=== PATIENT | male | born 1970 | race Caucasian/White ===

== ENCOUNTER → 2022-02-19 12:29 | Outpatient (BNVA) | payer MEDICARE, MEDICAID, SELFPAY | PROVIDERS: PCP Internal Medicine; Visit Provider Student in an Organized Health Care Education/Training Program | DX: M17.11 Unilateral primary osteoarthritis, right knee (principal); M25.561 Pain in right knee; M25.562 Pain in left knee; M1A.0720 Idiopathic chronic gout, left ankle and foot, without tophus (tophi) | CPT/HCPCS: 20610; 99202 ==

== ENCOUNTER 2022-08-16 17:33 | Emergency (ER) | payer OTHER, SELFPAY ==
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
--- NOTE | 2022-08-16 17:43 | ECG_ITS ---
Test Reason : ALTERED MENTAL Blood Pressure : / mmHG Vent. Rate : 129 BPM Atrial Rate : 129 BPM P-R Int : 150 ms QRS Dur : 102 ms QT Int : 296 ms P-R-T Axes : 019 012 011 degrees QTc Int : 433 ms Sinus tachycardia Cannot rule out Anterior infarct , age undetermined Abnormal ECG No previous ECGs available Referred By: Darcy Ponce Electronically Signed By:SEEMA ROSAS MD
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
[2022-08-16 18:19] VITALS: BP 103/58; BP 142/99; PULSE 130; PULSE 96; RESP 18; TEMP 36.9; O2SAT 94; O2SAT 97; BMI 38.0
[2022-08-16 18:21] LABS: MANUAL DIFF FLAG NO
[2022-08-16 18:39] LABS: Ethanol 277 mg/dL
[2022-08-16 18:43] LABS: Alanine Aminotransferase 38 U/L (0-40); Albumin Level 3.9 g/dL (3.5-5.0); Alkaline Phosphatase 105 U/L (39-117); Anion Gap 20 (12-20); Aspartate Amino Transferase 23 U/L (5-37); Bilirubin Direct 0.2 mg/dL (0.0-0.5); Bilirubin Total 0.6 mg/dL (0.0-1.0); Blood Urea Nitrogen 21 mg/dL (9-16); Calcium 8.7 mg/dL (8.4-10.2); Carbon Dioxide 17 mmol/L (22-29); Chloride 106 mmol/L (96-108); Creatinine Clr Calc Pharmacy 72.9; Estimated Glomerular Filt Rate 48; Glucose Random 335 mg/dL (60-115); Magnesium 2.1 mg/dL (1.6-2.6); Potassium 4.2 mmol/L (3.3-5.1); Sodium 139 mmol/L (135-145); Total Protein 6.8 g/dL (6.5-8.0)
[2022-08-16 18:44] LABS: Basophils Percent Auto 0.5 % (0-2); Eosinophils Percent Auto 0.2 % (0-4); Hematocrit 44.6 % (42.0-52.0); Hemoglobin 15.5 g/dl (14.0-18.0); Imm Gran Abs Auto 0.03 X10*3/uL (0.00-0.03); Imm Gran Pct Auto 0.5 % (0.0-0.4); Lymphocytes Absolute Auto 0.6 X10*3/uL (1.2-4.9); Lymphocytes Percent Auto 9.9 % (20-40); Mean Corpuscular HGB Conc 34.8 g/dl (31.0-36.0); Mean Corpuscular Hemoglobin 33.3 pg (27.0-33.0); Mean Corpuscular Volume 95.7 fL (80.0-98.0); Mean Platelet Volume 9.1 fL (9.4-12.4); Monocytes Absolute Auto 0.3 X10*3/uL (0.1-1.2); Monocytes Percent Auto 4.1 % (2-11); Neutrophils Absolute Auto 5.1 x10*3/uL (2.0-8.3); Neutrophils Percent Auto 84.8 % (45-73); Platelet Count 234 X10*3/uL (160-400); Red Blood Count 4.66 X10*6/uL (4.60-5.80); Red Cell Distribution Width 12.5 % (11.0-16.0); White Blood Count 6.1 X10*3/uL (4.8-10.8)
== END 2022-08-16 21:34 | disposition home or self-care (01) ==
PROVIDERS: Emergency Provider Emergency Medicine
DX: S00.93XA Contusion of unspecified part of head, initial encounter (principal); S01.81XA Laceration without foreign body of other part of head, initial encounter; V43.52XA Car driver injured in collision with other type car in traffic accident, initial encounter; F10.920 Alcohol use, unspecified with intoxication, uncomplicated; Y90.8 Blood alcohol level of 240 mg/100 ml or more; E11.9 Type 2 diabetes mellitus without complications; I10 Essential (primary) hypertension; E78.5 Hyperlipidemia, unspecified; Y93.89 Activity, other specified; Y92.414 Local residential or business street as the place of occurrence of the external cause; Y99.9 Unspecified external cause status; Z79.4 Long term (current) use of insulin; Z79.02 Long term (current) use of antithrombotics/antiplatelets; Z79.899 Other long term (current) drug therapy
CPT/HCPCS: 36415; 70450; 72125; 73590; 80048; 80076; 82077; 83735; 85025; 93005; 99283; 99284

== ENCOUNTER 2023-06-03 16:44 | Outpatient (AMB) | payer MEDICARE, MEDICAID, SELFPAY ==
[2023-06-03 16:51] VITALS: BP 124/82; PULSE 112; O2SAT 98; BMI 48.3
--- NOTE | 2023-06-03 16:51 | HO.NEPHOV_ITS ---
HPI HPI Comments History of Present Illness Details I had the privilege of seeing Librado in follow-up of his chronic kidney disease and nephrolithiasis. He has a diabetic and has lost some weight. He claims to have better blood sugar control. His blood pressure has been better. His recent imaging studies showed him to have big renal calculi. He denies any hematuria, flank pain, suprapubic pain, fever, nausea, vomiting or diarrhea. He has not had any gout exacerbations. He is tolerating losartan. He takes potassium citrate without fail and claims to be maintaining good hydration. He denies taking nonsteroidal anti-inflammatories. Patient brought in the CD of his recent renal ultrasound as well as the ultrasound report along with the blood work results during this office visit. [facility] Medical History (Updated 06/04/23 @ 12:42 by Kevin Castillo MD) Hypertension Hyperlipidemia Sarcoidosis Morbid obesity Microalbuminuric diabetic nephropathy Staghorn renal calculus Bilateral primary osteoarthritis of knee Onychomycosis Type 2 diabetes mellitus Family History Father CVA (cerebral vascular accident) Social History Household Members Other:: lives alone Housing: House Alcohol intake: never Patient Tobacco Use Status: Never used Tobacco service: No Current occupational status: retired Current occupation: Formerly worked at [employer] Vital Signs 06/03/23 16:51 Height 5 ft 10 in Weight 336 lb 6 oz BMI 48.3 BP 124/82 Blood Pressure Location Lt brachial Position Sitting Pulse 112 H Pulse Source Pulse Oximeter Pulse Oximetry (%) 98 Oxygen Delivery Method Room Air Physical Exam Vital Signs: Last Vital Signs Pulse 112 H 06/03/23 16:51 BP 124/82 06/03/23 16:51 Pulse Ox 98 06/03/23 16:51 Oxygen Delivery Method Room Air 06/03/23 16:51 BMI result Body Mass Index 48.3 Const General: comfortable and no acute distress Orientation/consciousness: patient oriented x3 HEENT Head: Yes normocephalic Mouth: Normal oral and palatal mucosa present Eyes EOM: EOMs intact bilaterally Neck Neck: Yes supple Resp Auscultation: clear to auscultation bilaterally Cardio Jugular venous distension: no JVD Rate: regular rate GI Palpation (GI): Soft to palpation Auscultation: normal bowel sounds General: Yes no CVA tenderness Back/Spine/Pelvis Back: no CVA tenderness Skin General skin exam: no rashes or lesions noted Neuro General: patient oriented x3 and moves all extremities Extrem General: Yes no pedal edema Assessment & Plan Assessment & Plan (1) Renal calculus: Code(s): N20.0 - Calculus of kidney (2) Hypertension: Code(s): I10 - Essential (primary) hypertension Qualifiers: Hypertension type: primary hypertension Qualified Code(s): I10 - Essential (primary) hypertension (3) CKD (chronic kidney disease) stage 3, GFR 30-59 ml/min: Code(s): N18.30 - Chronic kidney disease, stage 3 unspecified Qualifiers: Chronic kidney disease stage 3 subtype: stage 3a (GFR 45-59) Qualified Code(s): N18.31 - Chronic kidney disease, stage 3a Plan 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 He also has longs tanding issues with renal calculi. He recently had a renal ultrasound which showed multiple stones on both sides. I took the liberty to refer him [place] [facility] for further management of the stones. He is maintained on potassium citrate. I will consider adding hydrochlorothiazide if his old stone analysis showed dominant stone composition as calcium. He has not had any gout exacerbations and is maintained on uric acid lowering agents. His blood pressure is at goal. He is tolerating angiotensin receptor tonya. He maintains good hydration. I have ordered urine protein creatinine ratio and repeat renal functions. He needs to work on losing more weight. He avoids nonsteroidal anti-inflammatories. Follow-up blood work and urine studies ordered. Follow-up appointment given. Further management is pending evolving data. Orders: Orders Protein Creatinine Ratio, Ur 06/03/23 I10 - Essential (primary) hypertension, N18.30 - Chronic kidney disease, stage 3 unspecified, N20.0 - Calculus of kidney Creatinine 06/03/23 I10 - Essential (primary) hypertension, N18.30 - Chronic kidney disease, stage 3 unspecified, N20.0 - Calculus of kidney Blood Urea Nitrogen 06/03/23 I10 - Essential (primary) hypertension, N18.30 - Chronic kidney disease, stage 3 unspecified, N20.0 - Calculus of kidney Electrolytes 06/03/23 I10 - Essential (primary) hypertension, N18.30 - Chronic kidney disease, stage 3 unspecified, N20.0 - Calculus of kidney Calcium 06/03/23 I10 - Essential (primary) hypertension, N18.30 - Chronic kidney disease, stage 3 unspecified, N20.0 - Calculus of kidney Referrals Urology Referral N20.0 - Calculus of kidney Coding Level of Care Code Est Pt Level 4 (73481) Diagnoses Renal calculus N20.0 Primary hypertension I10 Hypertension type: primary hypertension Stage 3a chronic kidney disease N18.31 Chronic kidney disease stage 3 subtype: stage 3a (GFR 45-59) Results Reviewed Nephrology Results: Hgb 15.5 g/dl (14.0-18.0) 08/16/22 WBC 6.1 X10*3/uL (4.8-10.8) 08/16/22 Plt Count 234 X10*3/uL (160-400) 08/16/22 Sodium 139 mmol/L (135-145) 08/16/22 Potassium 4.2 mmol/L (3.3-5.1) 08/16/22 Chloride 106 mmol/L (96-108) 08/16/22 Carbon Dioxide 17 mmol/L (22-29) L 08/16/22 BUN 21 mg/dL (9-16) H 08/16/22 Creatinine 1.54 mg/dL (0.5-1.4) H 08/16/22 Calcium 8.7 mg/dL (8.4-10.2) 08/16/22
== END 2023-06-03 17:13 | disposition home or self-care (01) ==
LOC: HO.HKAS 16:44
PROVIDERS: PCP Internal Medicine; Visit Provider Internal Medicine Nephrology
DX: N20.0 Calculus of kidney (principal); I10 Essential (primary) hypertension; N18.31 Chronic kidney disease, stage 3a
CPT/HCPCS: 99214

== ENCOUNTER → 2023-06-03 16:44 | Outpatient (BNVA) | payer MEDICARE, MEDICAID, SELFPAY | PROVIDERS: PCP Internal Medicine; Visit Provider Internal Medicine Nephrology | DX: I12.9 Hypertensive chronic kidney disease with stage 1 through stage 4 chronic kidney disease, or unspecified chronic kidney disease (principal); N18.31 Chronic kidney disease, stage 3a; N20.0 Calculus of kidney | CPT/HCPCS: 99212 ==

== ENCOUNTER 2025-04-19 17:44 | Inpatient (IN) | payer MEDICARE, MEDICAID, SELFPAY ==
--- OUTSIDE RECORDS SUMMARY | 2025-03-23 03:29 | XMS_ITS | Continuity of Care Document ---
Author Organization [facility] Address [address] [place] [address] Dr Laughlin [address] [place] [id number] Phone Care Team Providers Care Devulcanizer Operator Name Role Phone Dieudonne DAILEY, ELISSA, Surinder VERGARA Unavailable U navailable Allergies, Adverse Reactions, Alerts Substance Reaction Status Criticality adhesive Active No Information Advance Directives Directive Yes / No Effective Date File Name No Information Encounters Encounter Description Practice Location Reason(s) For Visit Diagnoses Date Provider Encounter Disposition [facility], [address] [place] [address] Dr Laughlin [address]Suite Dany Brooke [place], [id number], [place] tel:[phone] [facility] No Information 5 Dieudonne DAILEY RVT, RPVI Robert. [address] [place] [address], [id number], [place]. tel:[phone] [facility], [address] [place] [address] Dr Laughlin [address]Dany [place], [id number], [place] tel:[phone] [facility] Type 2 diabetes mellitus without complication sObesity, class 3Obesity, Class 3Venous insufficienc y (chronic) (peripheral) Localized edemaChronic venous hypertension (idiopathic) with other complication s of bilateral lower extremity Oct- 5 Dieudonne DAILEY RVT, RPVI Robert. [address] [place] [address], [id number], [place]. tel:[phone] [facility], [address] [place] [address] Dr Laughlin [address]Suite Dany Brooke [place], [id number], [place] tel:[phone] [facility] - [facility] Chronic venous hypertension (idiopathic) with other complication s of bilateral lower extremity 5 Dieudonne DAILEY RVT, JAI Cadena. [address] [place] [address], [place], [place], [id number], [place]. tel:[phone] [facility], [address] [place] [address] [facility] [address] Dany Brooke [place], [id number], [place] tel:[phone] [facility] - [facility] Venous insufficienc y (chronic) (peripheral) Type 2 diabetes mellitus without complication sRestless legs syndrome 4 Dieudonne DAILEY RVT, JAI Cadena. [address] [place] [address], [place], [place], [id number], [place]. tel:[phone] [facility], [address] [place] [address] [facility] 1000[facility] Dany Brooke MD, [id number], [place] tel:[phone] [facility] - [facility] Chronic venous hypertension (idiopathic) with other complication s of bilateral lower extremity 4 Dieudonne DAILEY RVT, JAI Cadena. [address] [place] [address], [place], [place], [id number], [place]. tel:[phone] [facility], [address] [place] [address] Dr Laughlin 1000[facility] Dany Brooke MD, [id number], [place] tel:[phone] [facility] - [facility] Encounter for follow-up examination after completed treatment for conditions other than malignant neChronic venous hypertension (idiopathic) with other complication s of left lower extremity 4 Dieudonne DAILEY RVT, RPVI Robert. [address] [place] [address], [place], [place], [id number], [place]. tel:[phone] [facility], [address] [place] [address] Dr Laughlin [address] Dany Brooke [place], [id number], [place] tel:[phone] [facility] - [facility] Varicose veins of left lower extremity with other complication s 4 Dieudonne DAILEY RVT, JAI Cadena. [address] [place] [address], [address], [place], [id number], [place]. tel:[phone] [facility], [address] [place] [address] Dr Laughlin [address] 1000[place], [id number], [place] tel:[phone] [facility] [place] [facility] [place] Chronic venous hypertension (idiopathic) with inflammation of left lower extremity 4 Dieudonne DAILEY RVT, JAI Cadena. [address] [facility], [address], [place], [id number], [place]. tel:[phone] [facility], [address] [place] [address] Dr Laughlin [address] 1000Dany [place], [id number], [place] tel:[phone] [facility] [place] [facility] [place] Encounter for follow-up examination after completed treatment for conditions other than malignant nePain in right leg 4 Dieudonne DAILEY RVT, RPVI Robert. [address] [place] [address], [address], [place], [id number], [place]. tel:[phone] [facility], [address] [place] [address] Dr Laughlin [address] 1000Dany [place], [id number], [place] tel:[phone] [facility] [place] [facility] [place] Varicose veins of right lower extremity with other complication s 4 Arthur Morin. [address] [place] [address], [address], [place], [id number], [place]. tel:[phone] [facility], [address] [place] [address] Dr Laughlin [address] 1000Dany [place], [id number], [place] tel:[phone] [facility] [place] [facility] [place] Encounter for follow-up examination after completed treatment for conditions other than malignant neVaricose veins of right lower extremity with pain 4 Dieudonne DAILEY RVT, JAI Cadena. [address] [place] [address], [address], [place], [id number], [place]. tel:[phone] [facility], [address] [place] [address] Dr Laughlin [address] 1000Dany [place], [id number], [place] tel:[phone] [facility] [place] [facility] [place] Varicose veins of right lower extremity with other complication s 4 Dieudonne DAILEY RVT, JAI Cadena. [address] [place] [address], Suite [facility], [place], [place], [id number], [place]. tel:[phone] [facility], [address] [place] [address] Dr Laughlin [address] 999Dany [place], [id number], [place] tel:[phone] [facility] [place] [facility] [place] Varicose veins of right lower extremity with other complication s 4 Dieudonne DAILEY RVT, JAI Cadena. [address] [place] [address], Suite [facility], [facility] [place], [id number], [place]. tel:[phone] [place] [facility], [address] [place] [address] Dr Laughlin 1000[facility] Dany Brooke MD, [id number], [place] tel:[phone] [facility] [place] [facility] [place] No Information 4 Dieudonne DAILEY RVT, JAI Cadena. [address] [place] [address], Suite [facility], [facility] [place], [place], [id number], [place]. tel:[phone] [facility], [address] [place] [address] Dr Laughlin 1000SuDany leigh MD, [id number], [place] tel:[phone] [facility] [place] [facility] [place] Chronic venous hypertension (idiopathic) without complication s of bilateral lower extremity 4 Dieudonne DAILEY RVT, JAI Cadena. [address] [place] [address], [address], [facility] [place] [place], [id number], [place]. tel:[phone] [facility], [address] [place] [address] Dr Laughlin 1000SuDany leigh [place], [id number], [place] tel:[phone] [facility] [place] [facility] [place] Restless legs syndromeType 2 diabetes mellitus without complication sVenous insufficienc y (chronic) (peripheral) Localized edema 4 Emily Jaffe. [address] [place] [address], [facility] [place], [id number], [place]. tel:[phone] [facility], [address] [place] [address] Dr Laughlin [address], [place], [id number], [place] tel:[phone] [facility] Venous insufficienc y (chronic) (peripheral) Pain in right lower legPain in left lower legPain in right legRestless legs syndromePain in left leg 4 Dieudonne DAILEY RVT, JAI Cadena. [address] [place] [address], [facility] [place], [id number], [place]. tel:[phone] [facility], [address] [place] [address] Dr Laughlin [address], [place], [id number], [place] tel:[phone] [facility] Chronic venous hypertension (idiopathic) with ulcer of bilateral lower extremity 4 Dieudonne DAILEY RVT, JAI Cadena. [address] [place] [address], [facility] [place], [id number], [place]. tel:[phone] Family History Family Member Type Diagnosis Age At Onset No Information Payers Payer name Insurance type Identifiers Authorization(s) [employer] DANIEL AUGUSTE mikal ID: [id number] Name: Coverage Status Eligibility Check on: [id number] nship to Subscriber: selfPayer Address: [address], [place], [id number], [facility] Phone: [phone] Medical Assistance DANIEL HERRERA iber ID: [id number] Name: Coverage Status Eligibility Check on: [id number] nship to Subscriber: selfPayer Address: [address], [place], [place], [id number] Phone: [phone] Social History Type Description Quantity Date Captured Comments Alcohol Use Details Unknown Caffeine Use Details Unknown Tobacco Use Status No Information Smoking Status No Information Sex Male Current Gender Male (finding) Chief Complaint And Reason For Visit No Information Plan Of Treatment Date Type Action Status Goal Diet education completed Goal Diet education completed Goal Diet education completed Referral Ordered: Weight management: Referral to physician timeframe: 3 Months (related to Body mass index (BMI) 40.0-44.9, adult) ordered Referral Ordered: Weight management: Referral to physician timeframe: 3 Months (related to Body mass index (BMI) 40.0-44.9, adult) ordered Referral Ordered: Weight management: Referral to physician timeframe: 3 Months (related to Body mass index (BMI) 40.0-44.9, adult) ordered Appointment Major, Librado BOOKED Appointment Major, Librado BOOKED History Of Present Illness Encounter Date Complaint History Of Prese nt Illness No Information Functional Status Date Description Comments No Information Instructions Date Instruction Additional Infor flaco Diet education Related to Body mass index (BMI) 40.0-44.9, adult Giving Encouragement to exercise Related to Body mass index (BMI) 40.0-44.9, adult Lifestyle education Related to B kristy mass index (BMI) 40.0-44.9, adult Compression stocking usage as conservative measure Related to Chronic venous hypertension (idiopathic) with other complications of bilateral lower extremity Patient education booklet given Related to Chronic venous hypertension (idiopathic) with other complications of bilateral lower extremity Patient education booklet given Related to Venous insufficiency (chronic) (peripheral) Diet education Related to Body mass index (BMI) 40.0-44.9, adult Giving Encouragement to exercise Related to Body mass index (BMI) 40.0-44.9, adult Lifestyle education Related to B kristy mass index (BMI) 40.0-44.9, adult Compression stocking usage as conservative measure Related to Venous insufficiency (chronic) (peripheral) Patient education booklet given Related to Venous insufficiency (chronic) (peripheral) Compression stocking usage as conservative measure Related to Venous insufficiency (chronic) (peripheral) Patient education booklet given Related to Venous insufficiency (chronic) (peripheral) Lifestyle education Related to B kristy mass index (BMI) 40.0-44.9, adult Giving Encouragement to exercise Related to Body mass index (BMI) 40.0-44.9, adult Diet education Related to Body mass index (BMI) 40.0-44.9, adult Assessments Type Assessment Date No Information
--- NOTE | ~2025-04-19 | CT_ITS ---
CLINICAL HISTORY: Abnormal LFTs; Abd Pain; N V CT abdomen and pelvis with contrast Comparison: None provided Findings: There is moderate elevation of the right hemidiaphragm. There is mild right basilar atelectasis. There is moderate fatty replacement of the pancreas. There is peripancreatic fat stranding consistent with acute interstitial edematous pancreatitis. There is no pancreatic necrosis. There is no fluid collection. There is severe hepatic steatosis. There is mild hepatomegaly. The gallbladder, spleen, and adrenal glands are unremarkable. The left kidney is mildly atrophic. There are bilateral nonobstructing renal stones measuring up to 17 mm in the right kidney. The gastrointestinal tract is unremarkable. Patient is status post ventral hernia repair. There are no enlarged lymph nodes. The aorta is normal in diameter. The bladder is unremarkable. There is severe L4-5 degenerative disc disease. There is no fracture or suspicious lytic or sclerotic lesion. IMPRESSION: 1. Acute interstitial edematous pancreatitis. 2. Severe hepatic steatosis. This document has been electronically signed by: Noé Kellogg MD on 04/20/2025 00:30:33
--- NOTE | ~2025-04-19 | CT_ITS ---
CLINICAL HISTORY: Dizziness; Recent fall with headstrike CT head without contrast Comparison: CT/RI/SR - CT HEAD WITHOUT IV CONTRAST - 08/16/22 18:55 EDT Findings: There is no acute intracranial hemorrhage. Ventricles are of normal size and shape. No mass effect or midline shift is present. The steinberg-white matter differentiation appears normal. There is mucous in the left sphenoid sinus. Mastoids are clear. Orbits are unremarkable. No fractures are identified. IMPRESSION: No acute intracranial abnormality. This document has been electronically signed by: Noé Kellogg MD on 04/20/2025 00:31:19
[2025-04-19 19:06] VITALS: BP 152/75; PULSE 114; RESP 20; TEMP 36.8; O2SAT 99; BMI 45.9
--- NOTE | 2025-04-19 19:11 | ECG_ITS ---
Test Reason : VOMITTING Blood Pressure : */* mmHG Vent. Rate : 116 BPM Atrial Rate : 116 BPM P-R Int : 170 ms QRS Dur : 100 ms QT Int : 338 ms P-R-T Axes : 78 42 35 degrees QTcB Int : 469 ms Sinus tachycardia Otherwise normal ECG When compared with ECG of 16-Aug-2022 18:08, No significant change was found Referred By: Michael Randhawa Electronically Signed By: Justin Damon
--- NOTE | 2025-04-19 19:13 | ED_ITS ---
HPI - General Adult General Chief complaint: General Medical Stated complaint: DKA Time Seen by Provider: 04/19/25 22:12 Source: patient Mode of arrival: ambulatory Limitations: no limitations History of Present Illness ED Provider: Ld JARAMILLO HPI narrative: The patient is a 55-year-old male who presents to the ED reporting 1?2?days of progressive nausea and multiple episodes of non-bloody, non-bilious vomiting. He notes a markedly poor appetite and is unable to tolerate solid food; attempts at eating (e.g., chicken soup) and most oral fluids result in emesis. He states that he experiences transient abdominal pain that triggers the vomiting and then resolves immediately after vomiting. He denies associated fever, diarrhea, chest pain, cough, SOB, or recent sick contacts. Patient reports a history of diabetes for which he takes metformin, reports he is compliant with metformin and checking his blood sugars. The patient reports a recent diagnosis of ?DKA,? and some type of bone-marrow insufficiency, diagnosed approximately 2 months ago while at [facility]. Surgical history includes a hernia repair approximately 15 years ago; he denies other surgical abdominal history. The patient also reports a mechanical fall on Friday when he ?missed the bed? after feeling dizzy. Patient denies LOC but states a TV fell on his head, patient states he was eventually able to stand without assistance after dizziness subsided. Since the fall patient reports he feels unsteady when bending over to get into bed and reports that his ?legs just don?t seem to work. Patient denies alcohol use. Related Data Home Medications ?Medication ?Instructions ?Recorded ?Confirmed metformin 500 mg tablet 500 mg PO BID 02/19/2204/20 losartan 25 mg tablet 25 mg PO DAILY 06/03/2304/04 insulin aspart U-100 100 unit/mL 6 - 8 unit subcut TID WM 04/20/25 04/20/25 (3 mL) subcutaneous pen melatonin 12 mg tablet 12 mg PO BEDTIME PRN Insomni a 04/20/25 04/20/25 Previous Rx's ?Medication ?Instructions ?Recorded rosuvastatin 10 mg tablet 10 mg PO DAILY #90 tabs 03/0 01/25 Allergies Allergy/AdvReac Type Severity Reaction Status Date / Time adhesive tape AdvReac Mild Unknown Verified 04/19/25 19:13 Review of Systems 2 Review of Systems: Yes all other systems are reviewed and are negative [facility] Past Medical History Medical History Hypertension Hyperlipidemia Sarcoidosis Morbid obesity Microalbuminuric diabetic nephropathy Staghorn renal calculus Bilateral primary osteoarthritis of knee Onychomycosis Type 2 diabetes mellitus Family History Family History Father CVA (cerebral vascular accident) Social History Social History Household Members: None Household Members Other:: lives alone Housing: House Do you presently have visiting nurse or other home services: No Alcohol intake: current Patient Tobacco Use Status: Never used Tobacco service: No Current occupational status: retired Current occupation: Formerly worked at [employer] ED Vital Signs: Vital Signs - 24 hr 04/19/25 19:06 04/19/25 22:06 04/20/25 01:08 Temperature 98.2 F 98.5 F 98.1 F Pulse Rate 114 H 122 H 116 H Respiratory Rate 20 16 20 Blood Pressure 152/75 H 129/83 173/83 H Pulse Oximetry 99 100 100 Oxygen Delivery Method Room Air Room Air Room Air 04/20/25 02:21 Temperature 97.9 F Pulse Rate 122 H Respiratory Rate 23 H Blood Pressure 157/87 H Pulse Oximetry 98 Oxygen Delivery Method Room Air BMI result Body Mass Index 45.9 CONSTITUTIONAL: The patient appears unkempt, but otherwise non-toxic, well nourished and in no acute distress. Vital signs as documented. HEAD: Atraumatic, normocephalic. EYES: EOMs grossly intact, pupils equal, there is icteric sclera noted bilaterally, conjunctiva clear, no exudate. ENT: Nares patent, no discharge. Airway patent, no audible stridor, visible mucosa is pink and moist without noted lesions. NECK: Trachea is midline, no obvious masses or gross abnormalities. CHEST: Symmetric movement, normal appearance. LUNGS: LS present and CTAB, no w/r/r. Non-labored work of breathing. CARDIAC: Regular Rhythm, S1/S2 appreciated, no murmurs, rubs or gallops. ABDOMEN: Abdomen soft x4 quadrants, mild tenderness to palpation of the epigastrium, negative rebound, no palpable masses or organomegaly. : Deferred. EXTREMITIES: Normal tone, moves all extremities spontaneously without reported pain. No obvious acute injury or deformity noted. NEURO: Alert and oriented x3, CN II-XII appear grossly intact. Cerebellar Functioning grossly intact. No obvious sensory or motor deficits. Speech clear and appropriate. PSYCH: normal affect, appropriate eye contact, fluid speech, with appropriate response to questioning. No reported suicidality or homicidality. SKIN: Warm, dry, color appropriate, normal turgor. There is a rash noted to the cheeks consistent with a rosacea. No other rashes noted. Course Course Course Narrative: RME: 55 year male presents to ED for abdominal pain vomiting. Patient is tachycardic. Patient states not taking his insulin medication. POC 150. Labs UA EKG ordered Medications Administered Generic Name Dose Route Start Last Admin Trade Name Freq PRN Reason Stop Dose Admin Enoxaparin Sodium 40 mg 04/20/25 08:00 04/20/25 08:50 Enoxaparin Sodium 40 Mg/0.4 Ml Syringe SUBCUT 40 mg Q24H MONO Administration Insulin Human Regular 100 unit in 100 mls @ 8 mls/hr 04/20/25 04:30 04/20/25 05:38 Myxredlin IVCONT 1 unit/hr .[id number] MONO 1 mls/hr Protocol Titration 8 UNIT/HR Dextrose/Lactated Ringer's 1,000 mls @ 150 mls/hr 04/20/25 06:01 04/20/25 06:23 D5lr IVCONT 150 mls/hr .[id number] MONO Administration Losartan Potassium 25 mg 04/20/25 10:55 04/20/25 11:02 Losartan Potassium 25 Mg Tablet PO 25 mg DAILY MONO Administration Protocol Discontinued Medications Generic Name Dose Route Start Last Admin Trade Name Freq PRN Reason Stop Dose Admin Sodium Chloride 4,354.5 mls @ 4,354.5 mls/hr 04/19/25 22:23 04/20/25 04:00 Ns 30 ml/kg infuse over 1 hr (4354.5 ml) 04/19/25 23:22 Infused IV Infusion .Q1H STA Lactated Ringer's 1,000 mls @ 100 mls/hr 04/20/25 01:30 04/20/25 02:35 Lr IVCONT Not Given .Q10H MONO Dextrose/Sodium Chloride 1,000 mls @ 125 mls/hr 04/20/25 02:15 04/20/25 07:16 D5ns IVCONT Infused .Q8H MONO Infusion Iohexol 85 ml 04/19/25 23:26 04/19/25 23:27 Iohexol 350 Mg/Ml 100 Ml Infus..Btl IV 04/19/25 23:27 85 ml ONCE ONE Administration Metoclopramide HCl 10 mg 04/20/25 03:55 04/20/25 04:02 Metoclopramide Hcl 10 Mg/2 Ml Vial IVPUSH 04/20/25 03:56 10 mg ONCE ONE Administration Ondansetron HCl 4 mg 04/20/25 00:20 04/20/25 00:25 Ondansetron Hcl 4 Mg/2 Ml Vial IVPUSH 04/20/25 00:21 4 mg ONCE ONE Administration Medical Decision Making Medical Decision Making MDM Narrative: 10:29 PM 04/19/2025 (Renan JARAMILLO): The patient is a 55-year-old male who presents to the ED reporting 1?2?days of progressive nausea and multiple episodes of non-bloody, non-bilious vomiting. He notes a markedly poor appetite and is unable to tolerate solid food; attempts at eating (e.g., chicken soup) and most oral fluids result in emesis. He states that he experiences transient abdominal pain that triggers the vomiting and then resolves immediately after vomiting. He denies associated fever, diarrhea, chest pain, cough, SOB, or recent sick contacts. Patient reports a history of diabetes for which he takes metformin, reports he is compliant with metformin and checking his blood sugars. The patient reports a recent diagnosis of ?DKA,? and some type of bone-marrow insufficiency, diagnosed approximately 2 months ago while at [facility]. Surgical history includes a hernia repair approximately 15 years ago; he denies other surgical abdominal history. The patient also reports a mechanical fall on Friday when he ?missed the bed? after feeling dizzy. Patient denies LOC but states a TV fell on his head, patient states he was eventually able to stand without assistance after dizziness subsided. Since the fall patient reports he feels unsteady when bending over to get into bed and reports that his ?legs just don?t seem to work. Patient denies alcohol use, however chart review does reveal elevated ethanol levels during previous visit in 2022. The patient appears unkempt but otherwise nontoxic, patient is noted to have icteric sclera. Abdominal exam is mildly tender of the epigastrium, no other acute findings, no rebound. The patient's laboratory evaluation demonstrates multiple abnormalities. Patient appears pancytopenic with a WBC of 4.3, platelets of 74, and RBCs of 4.4. The patient's H&H are normal. The patient has no significant electrolyte abnormalities however CO2 is low at 11, with anion gap of 33 and BUN of 20. The patient's creatinine is normal at 1.20. The patient's blood sugar is only 160, beta hydroxybutyrate is 13.04. The patient's LFTs are markedly abnormal with T bili of 3.6, AST 171, ALT 120, and alkaline phosphatase 155. The patient's troponin is negative. Lipase is normal. Denies liver disease history. He checks his blood glucose ?as often as I can;? finger- stick in ED today measured 160 mg/dL. The patient's urinalysis demonstrates proteinuria, microscopic hematuria, but no evidence of infection. Viral swabs are negative for influenza, COVID, and RSV. We will initiate IV fluid hydration for metabolic acidosis, obtain VBG, hepatitis profile, direct bilirubin, tick- borne panel, and we will obtain CT abdomen and pelvis to evaluate LFT abnormality with nausea and vomiting. The patient will also undergo CT head without contrast prior to CT abdomen with contrast due to recent reported fall with a head strike and subsequent dizziness. Expect patient will require admission. 12:56 AM 04/20/2025 (Renan JARAMILLO): The patient's alcohol level is negative, however VBG confirms acidosis with a pH 7.22. The patient's urinalysis shows large ketones with no glucose, and glucose level is normal, patient's presentation is not consistent with diabetic ketoacidosis. Patient's adamantly states he is not a regular drinker, but does admit drinking during , patient has evidence for rosacea, and a bulbous nose, and patient has an elevated ethanol level on previous ED visit in 2022. There is concern that patient is a regular alcohol consumer despite declining this. Patient's acidosis appears more consistent with alcoholic ketoacidosis than diabetic ketoacidosis. The patient is not currently taking any SGLT2 inhibitors, no concern for euglycemic DKA. Additionally the patient's CT abdomen and pelvis has resulted and shows a markedly enlarged liver, and edematous pancreatitis. Despite this diagnosis of edematous pancreatitis the patient's lipase is normal at 32. The patient's tick-borne panel and hepatitis panel are still pending. Due to the presumed diagnosis of alcoholic ketoacidosis, the patient's 30 cc/kilos bolus will be continued however we will replace a single L of normal saline with D5 saline. Patient will be admitted for acute pancreatitis, and ketoacidosis. 3:36 AM 04/20/2025 (Renan JARAMILLO): Patient was admitted to the hospitalist service for pancreatitis and ketoacidosis as discussed above. Unfortunately, after admission to the hospitalist service, the patient's repeat laboratory evaluation demonstrated only minimal improvement in labs with beta hydroxybutyrate dropping to 11.4, CO2 increasing to 12, and anion gap dropping to 31 from 33. Unfortunately however PH did drop from 7.22-7.16 and upon repeat discussion with hospitalist it was decided that the patient was no longer appropriate for admission to the medical floor. At this time, despite euglycemic state, patient will be treated for suspected euglycemic diabetic ketoacidosis. There are no available ICU beds, as such we will initiate an insulin and dextrose drip in the ED, continue to monitor, and recheck labs to assess for improved acidosis and closed gap. If labs improve we will re-discuss care plan with the hospitalist to resume admission for pancreatitis ans diabetic ketoacidosis. 5:36 AM 04/20/2025 (Renan JARAMILLO): An ICU bed has become available, patient's case was discussed with Dr. Gonzalez from the ICU and the patient was accepted to the ICU for euglycemic diabetic ketoacidosis and pancreatitis. Patient remains hemodynamically stable, we will continue dextrose and insulin drip. Admission/Observation Consideration of admission/observation: Escalation of care including admission/observation considered Lab Data MDM Lab Attestation statement: I reviewed the patient's lab results. 04/20/25 10:46 04/20/25 10:46 Labs: Lab Results 04/19/25 04/19/25 04/19/25 Range/Units 19:11 19:40 20:41 WBC 4.3 L (4.8-10.8) X10*3/uL RBC 4.45 L (4.60-5.80) X10*6/uL Hgb 16.8 (14.0-18.0) g/dl Hct 49.1 (42.0-52.0) % MCV 110.3 H (80.0-98.0) fL MCH 37.8 H (27.0-33.0) pg MCHC 34.2 (31.0-36.0) g/dl RDW 14.5 (11.0-16.0) % Plt Count 74 L D (160-400) X10*3/uL MPV 9.2 L (9.4-12.4) fL Immature Gran % (Auto) 0.2 (0.0-0.4) % Neut % (Auto) 82.0 H (45-73) % Lymph % (Auto) 6.0 L (20-40) % Rincon % (Auto) 10.0 (2-11) % Eos % (Auto) 0.9 (0-4) % Baso % (Auto) 0.9 (0-2) % Lymph # (Auto) 0.3 L (1.2-4.9) X10*3/uL Rincon # (Auto) 0.4 (0.1-1.2) X10*3/uL Eos # (Auto) 0.0 (0.0-0.4) X10*3/uL Baso # (Auto) 0.0 (0.0-0.2) X10*3/uL Abs Immat Gran (auto) 0.01 (0.00-0.03) X10*3/uL Absolute Neuts (auto) 3.5 (2.0-8.3) x10*3/uL Absolute Nucleated RBC 0.000 (0.0-0.012) X10*3/uL Nucleated RBC % (auto) 0.0 (0.0-0.2) /100WBC Smear Path Review SEE NOTE PT 12.7 (11.2-13.5) SEC INR 1.0 (0.9-1.1) APTT 29.1 (26.7-34.1) SEC VBG pH (7.32-7.43) VBG pCO2 mmHg VBG pO2 mmHg VBG HCO3 (22-26) mmol/L VBG O2 Saturation % VBG Base Excess mmol/L Sodium 136 (135-145) mmol/L Potassium 4.6 (3.3-5.1) mmol/L Chloride 97 (96-108) mmol/L Carbon Dioxide 11 L (22-29) mmol/L Anion Gap 33 H (12-20) BUN 20 H (9-16) mg/dL Creatinine 1.20 (0.5-1.4) mg/dL Estim Creat Clear Calc 100.2 Estimated GFR > 60 POC Glucose 160 H (60-115) mg/dL Random Glucose 178 H (60-115) mg/dL Calcium 8.8 (8.4-10.2) mg/dL Total Bilirubin 3.6 H (0.0-1.0) mg/dL Direct Bilirubin (0.0-0.5) mg/dL AST 171 H (5-37) U/L ALT 120 H (0-40) U/L Alkaline Phosphatase 155 H (39-117) U/L Troponin I High Sens 8.7 (<3.5-35.0) ng/L Total Protein 8.1 H (6.5-8.0) g/dL Albumin 4.7 (3.5-5.0) g/dL Triglycerides (<150) mg/dL Lipase 32 (8-78) U/L Beta-Hydroxybutyrate 13.04 H (0.02-0.27) mmol/L Urine Color Dark Yellow Urine Appearance Clear Urine pH 5.5 (5.0-9.0) Ur Specific Mckenney 1.020 (1.005-1.025) Urine Protein 100 (2+) H (Neg-Trace) mg/dL Urine Glucose (UA) Negative (Negative) mg/dL Urine Ketones >=160 (Negative) mg/dL Urine Blood Large (3+) H (Negative) Urine Nitrite Negative (Negative) Ur Leukocyte Esterase Negative (Negative) Urine RBC >20 H (0-2) /HPF Urine WBC 0-5 (0-5) /HPF Ur Squamous Epith Cells 0-2 (0-2) /HPF Urine Bacteria None Seen (None Seen) Hyaline Casts 6-10 (0-2) /LPF Acetaminophen (<30) mcg/mL Ethyl Alcohol mg/dL Hepatitis A IgM Ab (Nonreactive) Hep Bs Antibody (Nonreactive) Hep B Core Total Ab (Nonreactive) Hepatitis C Ab (EIA) (Nonreactive) Influenza Type A (PCR) NEGATIVE (Negative) Influenza Type B (PCR) NEGATIVE (Negative) RSV RNA Qual (PCR) NEGATIVE (Negative) SARS-CoV-2 RNA (RT-PCR) NEGATIVE (Negative) 04/19/25 04/19/25 04/20/25 Range/Units 22:39 22:44 01:36 WBC (4.8-10.8) X10*3/uL RBC (4.60-5.80) X10*6/uL Hgb (14.0-18.0) g/dl Hct (42.0-52.0) % MCV (80.0-98.0) fL MCH (27.0-33.0) pg MCHC (31.0-36.0) g/dl RDW (11.0-16.0) % Plt Count (160-400) X10*3/uL MPV (9.4-12.4) fL Immature Gran % (Auto) (0.0-0.4) % Neut % (Auto) (45-73) % Lymph % (Auto) (20-40) % Rincon % (Auto) (2-11) % Eos % (Auto) (0-4) % Baso % (Auto) (0-2) % Lymph # (Auto) (1.2-4.9) X10*3/uL Rincon # (Auto) (0.1-1.2) X10*3/uL Eos # (Auto) (0.0-0.4) X10*3/uL Baso # (Auto) (0.0-0.2) X10*3/uL Abs Immat Gran (auto) (0.00-0.03) X10*3/uL Absolute Neuts (auto) (2.0-8.3) x10*3/uL Absolute Nucleated RBC (0.0-0.012) X10*3/uL Nucleated RBC % (auto) (0.0-0.2) /100WBC Smear Path Review PT (11.2-13.5) SEC INR (0.9-1.1) APTT (26.7-34.1) SEC VBG pH 7.22 L (7.32-7.43) VBG pCO2 24 mmHg VBG pO2 55 mmHg VBG HCO3 10 L (22-26) mmol/L VBG O2 Saturation 83.0 % VBG Base Excess -15.1 mmol/L Sodium 137 (135-145) mmol/L Potassium 4.5 (3.3-5.1) mmol/L Chloride 99 (96-108) mmol/L Carbon Dioxide 12 L (22-29) mmol/L Anion Gap 31 H (12-20) BUN 21 H (9-16) mg/dL Creatinine 1.26 (0.5-1.4) mg/dL Estim Creat Clear Calc 95.4 Estimated GFR 59 POC Glucose (60-115) mg/dL Random Glucose 179 H (60-115) mg/dL Calcium 8.1 L D (8.4-10.2) mg/dL Total Bilirubin 3.2 H (0.0-1.0) mg/dL Direct Bilirubin 2.0 H (0.0-0.5) mg/dL AST 135 H (5-37) U/L ALT 106 H (0-40) U/L Alkaline Phosphatase 138 H (39-117) U/L Troponin I High Sens (<3.5-35.0) ng/L Total Protein 7.4 (6.5-8.0) g/dL Albumin 4.3 (3.5-5.0) g/dL Triglycerides 125 (<150) mg/dL Lipase (8-78) U/L Beta-Hydroxybutyrate 11.44 H (0.02-0.27) mmol/L Urine Color Urine Appearance Urine pH (5.0-9.0) Ur Specific Mckenney (1.005-1.025) Urine Protein (Neg-Trace) mg/dL Urine Glucose (UA) (Negative) mg/dL Urine Ketones (Negative) mg/dL Urine Blood (Negative) Urine Nitrite (Negative) Ur Leukocyte Esterase (Negative) Urine RBC (0-2) /HPF Urine WBC (0-5) /HPF Ur Squamous Epith Cells (0-2) /HPF Urine Bacteria (None Seen) Hyaline Casts (0-2) /LPF Acetaminophen < 3 (<30) mcg/mL Ethyl Alcohol < 10 mg/dL Hepatitis A IgM Ab Nonreactive (Nonreactive) Hep Bs Antibody NONREACTIVE (Nonreactive) Hep B Core Total Ab Nonreactive (Nonreactive) Hepatitis C Ab (EIA) Nonreactive (Nonreactive) Influenza Type A (PCR) (Negative) Influenza Type B (PCR) (Negative) RSV RNA Qual (PCR) (Negative) SARS-CoV-2 RNA (RT-PCR) (Negative) 04/20/25 04/20/25 04/20/25 Range/Units 01:43 04:01 05:32 WBC (4.8-10.8) X10*3/uL RBC (4.60-5.80) X10*6/uL Hgb (14.0-18.0) g/dl Hct (42.0-52.0) % MCV (80.0-98.0) fL MCH (27.0-33.0) pg MCHC (31.0-36.0) g/dl RDW (11.0-16.0) % Plt Count (160-400) X10*3/uL MPV (9.4-12.4) fL Immature Gran % (Auto) (0.0-0.4) % Neut % (Auto) (45-73) % Lymph % (Auto) (20-40) % Rincon % (Auto) (2-11) % Eos % (Auto) (0-4) % Baso % (Auto) (0-2) % Lymph # (Auto) (1.2-4.9) X10*3/uL Rincon # (Auto) (0.1-1.2) X10*3/uL Eos # (Auto) (0.0-0.4) X10*3/uL Baso # (Auto) (0.0-0.2) X10*3/uL Abs Immat Gran (auto) (0.00-0.03) X10*3/uL Absolute Neuts (auto) (2.0-8.3) x10*3/uL Absolute Nucleated RBC (0.0-0.012) X10*3/uL Nucleated RBC % (auto) (0.0-0.2) /100WBC Smear Path Review PT (11.2-13.5) SEC INR (0.9-1.1) APTT (26.7-34.1) SEC VBG pH 7.16 L* (7.32-7.43) VBG pCO2 30 mmHg VBG pO2 47 mmHg VBG HCO3 11 L (22-26) mmol/L VBG O2 Saturation 72.0 % VBG Base Excess -15.9 mmol/L Sodium (135-145) mmol/L Potassium (3.3-5.1) mmol/L Chloride (96-108) mmol/L Carbon Dioxide (22-29) mmol/L Anion Gap (12-20) BUN (9-16) mg/dL Creatinine (0.5-1.4) mg/dL Estim Creat Clear Calc Estimated GFR POC Glucose 177 H 160 H (60-115) mg/dL Random Glucose (60-115) mg/dL Calcium (8.4-10.2) mg/dL Total Bilirubin (0.0-1.0) mg/dL Direct Bilirubin (0.0-0.5) mg/dL AST (5-37) U/L ALT (0-40) U/L Alkaline Phosphatase (39-117) U/L Troponin I High Sens (<3.5-35.0) ng/L Total Protein (6.5-8.0) g/dL Albumin (3.5-5.0) g/dL Triglycerides (<150) mg/dL Lipase (8-78) U/L Beta-Hydroxybutyrate (0.02-0.27) mmol/L Urine Color Urine Appearance Urine pH (5.0-9.0) Ur Specific Mckenney (1.005-1.025) Urine Protein (Neg-Trace) mg/dL Urine Glucose (UA) (Negative) mg/dL Urine Ketones (Negative) mg/dL Urine Blood (Negative) Urine Nitrite (Negative) Ur Leukocyte Esterase (Negative) Urine RBC (0-2) /HPF Urine WBC (0-5) /HPF Ur Squamous Epith Cells (0-2) /HPF Urine Bacteria (None Seen) Hyaline Casts (0-2) /LPF Acetaminophen (<30) mcg/mL Ethyl Alcohol mg/dL Hepatitis A IgM Ab (Nonreactive) Hep Bs Antibody (Nonreactive) Hep B Core Total Ab (Nonreactive) Hepatitis C Ab (EIA) (Nonreactive) Influenza Type A (PCR) (Negative) Influenza Type B (PCR) (Negative) RSV RNA Qual (PCR) (Negative) SARS-CoV-2 RNA (RT-PCR) (Negative) Radiology Impression Discussion of test interpretation with radiology: I have reviewed the radiologist's reading. External Record Review External record reviewed: Outpatient record and Prior outpatient labs Chronic Conditions Patient?s care impacted by: Diabetes Critical Care Time Critical Care Time Critical Care Time: Yes Total Critical Care Time: 45 Attestation: CRITICAL CARE TIME: 45 minutes of critical care time was spent in direct patient care at the bedside or in the immediate area with this patient. Critical care was necessary to treat or prevent imminent or life-threatening deterioration of the following conditions euglycemic DKA due to pancreatitis. This patient is high risk for decompensation and/or . This time was spent assessing and managing the patient, interpreting labs and imaging, coordinating care with other medical providers, gathering history from either the patient, their representatives, EMS or chart review, and discussing management with ICU. Discharge Plan Discharge Clinical Impression: Ketoacidosis Acute pancreatitis Qualifiers: Pancreatitis type: unspecified pancreatitis type Acute pancreatitis complication: no infection or necrosis Qualified Code(s): K85.90 - Acute pancreatitis without necrosis or infection, unspecified Patient Disposition: Admitted As Inpatient Interventions: Admission Worksheet (ED) Last Done: 04/20/25 07:02 Discharge Date/Time: 04/20/25 07:02
[2025-04-19 19:17] LABS: Glucose, Whole Blood 160 mg/dL (60-115)
[2025-04-19 19:48] LABS: Hematocrit 49.1 % (42.0-52.0); Hemoglobin 16.8 g/dl (14.0-18.0); Imm Gran Abs Auto 0.01 X10*3/uL (0.00-0.03); Imm Gran Pct Auto 0.2 % (0.0-0.4); Lymphocytes Absolute Auto 0.3 X10*3/uL (1.2-4.9); MANUAL DIFF FLAG NO; Mean Corpuscular HGB Conc 34.2 g/dl (31.0-36.0); Mean Corpuscular Hemoglobin 37.8 pg (27.0-33.0); NRBC Abs Auto 0.000 X10*3/uL (0.0-0.012); NRBC Pct Auto 0.0 /100WBC (0.0-0.2); Red Blood Count 4.45 X10*6/uL (4.60-5.80); White Blood Count 4.3 X10*3/uL (4.8-10.8)
[2025-04-19 19:50] LABS: Appearance Urine Clear; Glucose Urine UA Negative (Negative); PH 5.5 (5.0-9.0); Specific Gravity - Urine 1.020 (1.005-1.025); UMIC TRIGGER UACC YES
[2025-04-19 19:53] LABS: Mean Corpuscular Volume 110.3 fL (80.0-98.0)
[2025-04-19 20:09] LABS: Platelet Count 74 X10*3/uL (160-400)
[2025-04-19 20:18] LABS: Troponin-I High Sensitivity 8.7 ng/L (<3.5-35.0)
[2025-04-19 20:19] LABS: Alanine Aminotransferase 120 U/L (0-40); Albumin Level 4.7 g/dL (3.5-5.0); Alkaline Phosphatase 155 U/L (39-117); Anion Gap 33 (12-20); Aspartate Amino Transferase 171 U/L (5-37); Blood Urea Nitrogen 20 mg/dL (9-16); Calcium 8.8 mg/dL (8.4-10.2); Carbon Dioxide 11 mmol/L (22-29); Chloride 97 mmol/L (96-108); Creatinine Clr Calc Pharmacy 100.2; Estimated Glomerular Filt Rate > 60; Lipase 32 U/L (8-78); Potassium 4.6 mmol/L (3.3-5.1); Sodium 136 mmol/L (135-145); Total Protein 8.1 g/dL (6.5-8.0)
[2025-04-19 20:24] LABS: Resp Syncy Virus RNA Qual PCR NEGATIVE (Negative); SARS COV2 PCR INHOUSE NEGATIVE (Negative)
[2025-04-19 21:04] LABS: INTERNATIONAL NORM RATIO 1.0 (0.9-1.1); Prothrombin Time 12.7 SEC (11.2-13.5)
[2025-04-19 21:06] LABS: Partial Thromboplastin Time 29.1 SEC (26.7-34.1)
--- OUTSIDE RECORDS SUMMARY | 2025-04-19 21:43 | XMS_ITS ---
Author Organization [address] Address [address] [place] [phone] Phone Care Team Providers Care Photographer'S Assistant Name Role Phone Betty Bowman MD Primary Care Provider [phone] Chronic Care Management Status:Ongoing (Active) Start date:02/09/2025 Enrollment date:02/17/2025 Enrollment reason:Referred by Care Team Case Team Name Relationship Phone Becky Abbasi RN(Responsible Staff) Care Scarlet patricia Continued Care and Services Coordination
--- OUTSIDE RECORDS SUMMARY | 2025-04-19 21:43 | XMS_ITS | Data Portability ---
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 Plan of Treatment Reminders Order Date Submit Date Provider Last Modified By Organization Details Last Modified Time Details Appointments None recorded. Lab None recorded. Referral None recorded. Procedures None recorded. Surgeries None recorded. Imaging None recorded. Medication Orders Polytrim 10,000 unit-1 mg/mL eye drops 2022 023 [id number], [address] [place], [id number], 3 16:47:40 Patient TargetsNo targets recorded. Patient Instructions Encounter Date Encounter Id Patient Instructions Last Modified By Organization Details Last Modified Time 08/02/2022 [id number] Do not squeeze o r try to open a stye or chalazion. To help a stye or chalazion heal faster: Put a warm, moist compress on your eye for 5 to 10 minutes, 3 to 6 times a day. Heat often brings a stye to a point where it drains on its own. Keep in mind that warm compresses will often increase swelling a little at first. Do not use hot water or heat a wet cloth in a microwave oven. The compress may get too hot and can burn the eyelid. If the doctor gave you antibiotic drops or ointment, use the medicine exactly as directed. Use the medicine for as long as instructed, even if your eye starts to feel better. To put in eyedrops or ointment: Tilt your head back, and pull your lower eyelid down with one finger. Drop or squirt the medicine inside the lower lid. Close your eye for 30 to 60 seconds to let the drops or ointment move around. Do not touch the ointment or dropper tip to your eyelashes or any other surface. Do not wear eye makeup or contact lenses until the stye or chalazion heals. Do not share towels, pillows, or face cloths while you have a stye. What can you do to prevent styes and chalazia? Here are some things you can do to prevent styes and chalazia. Don't rub your eyes. This can irritate your eyes and let in bacteria. If you need to touch your eyes, wash your hands first. Protect your eyes from dust and air pollution when you can. For example, wear safety glasses when you do efren chores like raking or mowing the lawn. Remove eye makeup before you go to sleep. Replace eye makeup, especially mascara, at least every 6 months. Bacteria can grow in makeup. If you get stye or chalazia often, wash your eyelids regularly with a little bit of baby shampoo mixed in warm water. Treat any inflammation or infection of the eyelid promptly. [email or web address] Not available 08/02/2022 16:47:08 Reason for Referral None Reported. Problems No Known Problems Medical Equipment None Reported. Allergies Allergen ID Allergen Name Allergen Category Reaction Reaction Severity Criticality Documentation Date Start Date Code Code System Note Provider Name and Address Organization Details Recorded Time 247402 latex environme nt,medica tion Not available Not available Not available 08/02/2022 [id number] RxNorm E[facility]A Leyva - [facility] 16:09:07 Medications Name Sig Start Date Stop Date Status Note LastModified by Organization Details LastModified Time metformin 500 mg tablet TAKE 1 TABLET BY MOUTH TWICE DAILY WITH MEALS 08/02 completed Not Available Not Available Not Available atorvastati n 20 mg tablet TAKE 1 TABLET BY MOUTH DAILY 08/02 completed Not Available Not Available Not Available prednisone 20 mg tablet TAKE 3 TABLETS BY MOUTH EVERY DAY FOR 3 DAYS THEN TAKE 2 TABLETS BY MOUTH EVERY DAY FOR 3 DAYS THEN TAKE 1 TABLET BY MOUTH EVERY DAY FOR 3 DAYS 08/02 completed Not Available Not Available Not Available allopurinol 100 mg tablet TAKE 2 TABLETS BY MOUTH DAILY 08/02 completed Not Available Not Available Not Available tamsulosin 0.4 mg capsule TAKE 1 CAPSULE BY MOUTH AT BEDTIME 08/02 completed Not Available Not Available Not Available losartan 25 mg tablet TAKE 1 TABLET BY MOUTH DAILY 08/02 completed Not Available Not Available Not Available Polytrim 10,000 unit-1 mg/mL eye drops INSTILL 1 DROP INTO AFFECTED EYE(S) BY OPHTHALMI C ROUTE EVERY 6 HOURS x 7 days. 2022 active Not Available Not Available Not Avai lable colchicine 0.6 mg tablet TAKE 1 TABLET BY MOUTH TWICE DAILY 08/02 completed Not Available Not Available Not Available Novolog FlexPen U-100 Insulin aspart 100 unit/mL (3 mL) subcutaneou s ADMINISTE R 15 UNITS UNDER THE SKIN THREE TIMES DAILY BEFORE MEALS 08/02 completed Not Available Not Available Not Available rosuvastati n 10 mg tablet TAKE 1 TABLET BY MOUTH DAILY 08/02 completed Not Available Not Available Not Available BD Ultra-Fine Short Pen Needle 31 gauge x 5/16 USE DIRECTED FIVE TIMES A DAY 08/02 completed Not Available Not Available Not Available GaviLyte-G 236 gram-22.74 gram-6.74 gram-5.86 gram oral solution 08/02 completed Not Available Not Available Not Available doxepin 3 mg tablet TAKE 1 TABLET BY MOUTH AT BEDTIME NEEDED FOR INSOMNIA 08/02 completed Not Available Not Available Not Available Victoza 3-Binh 0.6 mg/0.1 mL (18 mg/3 mL) subcutaneou s pen injector ADMINISTE R 1.8 MG UNDER THE SKIN DAILY 08/02 completed Not Available Not Available Not Available Basaglar KwikPen U-100 Insulin 100 unit/mL (3 mL) subcutaneou s ADMINISTE R 45 UNITS UNDER THE SKIN AT BEDTIME 08/02 completed Not Available Not Available Not Available Rybelsus 14 mg tablet TAKE 1 TABLET BY MOUTH EVERY MORNING ON AN EMPTY STOMACH 30 MINUTES BERORE FOOD AND OTHER MEDICATIO NS 08/02 completed Not Available Not Available Not Available Vitals Date Recorded Body height Body mass index (BMI) Body weight Pain severity - 0-10 verbal numeric rating [Score] - Reported Oxygen saturation Heart rate Respiratory rate Body temperature Systolic And Diastolic Provider Name and Address Organization Details Last Updated DateTime 3 195.58 cm 29.6 kg/m2 880260. 09 g 3 96 % 106 /min 18 /min 98.1 [degF] 153/89 mm[Hg] Dina Root [facility] - [facility] 16:12:25 Social History Question Answer Notes LastModified by Okta Details LastModified Time Tobacco Smoking Status Never Smoker Dina Root ELLA ramírez - [facility] 08/02/2022 16:10:29 Have You Recently Traveled Abroad? No Information not available 08/02/2022 Sex: Unknown Functional Status Question Answer Note LastModified by Okta Details LastModified Time Do you use any illicit or recreational drugs? No Information not available 08/02/2022 Do you or have you ever used any other forms of tobacco or nicotine? Yes Information not available 08/02/2022 What is your level of alcohol consumption? None Information not available 08/02/2022 Mental Status None recorded. Family History Relationship Description Onset Age of this Age Resolved Age Notes LastModified by Organization Details LastModified Time Father No current problems or disability [email or web address] Not available 08/02 16:10:19 Mother No current problems or disability [email or web address] Not available 08/02 16:10:19 Medical History No medical history recorded. Past Encounters Encounter ID Performer Location Encounter Start Date Encounter Closed Date Diagnosis/Indication Diagnosis SNOMED-CT Code Diagnosis ICD10 Code Diagnosis IMO Codes Diagnosis Note [id number] [address] [facility] [place] [facility] [address] [place] [address] 07/24/2021 12:49:07 07/24/2021 14:32:11 [id number] Gianni Wills NP [address] [place] [address] 08/02/2022 15:46:07 08/02/2022 16:51:04 Internal hordeolum of right lower eyelid 3412168223 26337 H00.022 Health Concerns Section Related Observation LastModified by Organization Detai ls LastModified Time None Recorded Concern Status LastModified by Organization Details LastModified Time None Recorded Advance Directives Directive None Recorded Payers Insurance Date Sequence Insurance Name Policy Number Policy Sandoval Covered Member ID Sandoval Member ID Guarantor Name 08/02/2022 1 [place] [employer] Libr[employer] Yancey Major [id number] Librado Yancey Major 08/02/2022 2 [place] [facility] Librado S Major [id number] Librado S Major Notes Date Note Type Note Provider Name and Address Organization Details Recorded Time 08/02/2022 text/html Eye problemsRepo rted by PatientHPIFor eye symptoms, patient reportssensitivity to light,pain worse with eye movement,redness, andwaterybut reportsno discharge of pus from the eyes,no pain in the eyes, andno blurred vision. For source of patient information, patient reportsinformation obtained from patient,patient arrived at urgent care ambulatory, andlearning styles: auditory. For location, patient reportsright. For severity, patient reportsmild. For onset/timing, patient [id number]. For juan aggravating factors, patient reportsbright light makes it worse. For juan alleviating factors, patient reportsnothing helps. Gianni Wills NP [address] [place], [address], [place] - [facility] 08/02/2022 16:47:36
--- OUTSIDE RECORDS SUMMARY | 2025-04-19 21:43 | XMS_ITS | Clinical Summary ---
Author Organization [facility] [address] [place] [address] [place] [phone] Phone Care Team Providers Care Quality Audit Representative Name Role Phone Betty Bowman MD Primary Care Provider [phone] Allergies Active Allergy Reactions Criticality Noted Date Comments Other 03/16/2024 Surgical Tape Medications potassium citrate (UROCIT-K) 15 mEq SR tablet Take 1 tablet (15 mEq total) by mouth 1 (one) time each day. 9 Active tamsulosin (FLOMAX) 0.4 mg 24 hr capsule Take 1 capsule (0.4 mg total) by mouth 1 (one) time each day. 4 Active freestyle (FreeStyle Lancets) 28 gauge lancets by Other route 1 (one) time each day before breakfast. 100 each 1 4 Active blood sugar diagnostic (FreeStyle Lite Strips) test strip 1 each by Other route 1 (one) time each day before breakfast. 100 each 1 4 Active allopurinoL (ZYLOPRIM) 100 mg tablet Take 1 tablet (100 mg total) by mouth 1 (one) time each day. 3 Active melatonin 3 mg tablet Take 5 mg by mouth at bedtime. Active ASHWAGANDHA EXTRACT ORAL Take by mouth. Active atorvastatin (LIPITOR) 20 mg tablet TAKE 1 TABLET BY MOUTH DAILY 90 tablet 1 5 Active insulin aspart (NovoLOG Flexpen U-100 Insulin) 100 unit/mL (3 mL) injection pen Inject 8 Units under the skin 3 (three) times a day with meals. 15 mL 2 5 Active metFORMIN (GLUCOPHAGE) 500 mg tablet Take 1 tablet (500 mg total) by mouth 2 (two) times a day with meals. 180 tablet 1 5 Active losartan (COZAAR) 25 mg tablet Take 1 tablet (25 mg total) by mouth 1 (one) time each day. 90 tablet 1 5 Active insulin glargine-yfgn 100 unit/mL (3 mL) injection Inject 25 Units under the skin at bedtime. 15 mL 5 Active gabapentin (NEURONTIN) 300 mg capsule Take 1 capsule (300 mg total) by mouth at bedtime. 90 each 1 5 Active pen needle, diabetic 31 gauge x 516 needleIndications :DM (diabetes mellitus), type 2 with peripheral vascular complications (CMS/HCC V24, CMS/HCC V28) Use to inject insulin 4 times daily 400 each 1 5 03/23/20 26 Active BD Ultra-Fine Short Pen Needle 31 gauge x 5/16 needle USE DIRECTED NIGHTLY 100 each 2 5 03/23/20 25 Discontin ued(Ineff ective) Active Problems Problem Noted Date Diagnosed Date Plantar fascial fibromatosis 09/23/2024 Umbilical hernia 09/23/2024 Morbid obesity with BMI of 40.0-44.9, adult 03/0507/09/2013 Erectile dysfunction 03/11/2024 Insomnia 05/31/2023 Varicose veins of both lower extremities 021 Stage 3a chronic kidney disease 06/20/2020 Type 2 diabetes mellitus with cataract 0 Overview (03/11/2024): Nuclear sclerosis Onychomycosis 09/23/2018 Osteoarthritis of knees, bilateral 08/31/2018 Staghorn renal calculus 10/16/2017 Overview (03/11/2024): Dr. Coleman - rec bilateral ureteroscopies 2018 Renal cyst 10/16/2017 Type II diabetes mellitus with renal manifestati ons 05/28/2017 Microalbuminuria 05/28/2017 NS (nuclear sclerosis), bilateral 05/28/2017 DM (diabetes mellitus), type 2 with peripheral vascular complications 02/06/2015 Sarcoidosis, lung 09/11/2012 Hyperlipidemia 12/17/2010 Hypertension 08/14/2010 Hematuria, gross 01/22/2010 Resolved Problems Problem Noted Date Diagnosed Date Resolved Date History of alcoholism 09/23/20242024 Overview (09/23/2024): Jun 26, 2011 Entered By: APOLINAR BURGER Comment: ETOH: used to be high: stopped in Encounters Date Type Department Care Team Description 03/28/2025 Telephone Adult [address] [phone] Betty Bowman MD 03/23/2025 1:30 PM EST Office Visit [address] [phone] Betty Bowman MD Type 2 diabetes mellitus with stage 3 chronic kidney disease, with long-term current use of insulin, unspecified whether stage 3a or 3b CKD (CMS/HCC V24, CMS/HCC V28) (Primary Dx); Primary hypertension; Other hyperlipidemia; Leg paresthesia; Weakness of both lower extremities 03/23/2025 Telephone Adult [address] [phone] Mojgan Arroyo [place] 02/22/2025 10:00 AM EDT Telemedicine Adult [address] [phone] Miriam Paul, PharmD Type 2 diabetes mellitus with stage 3 chronic kidney disease, with long-term current use of insulin, unspecified whether stage 3a or 3b CKD (CMS/HCC V24, CMS/HCC V28) (Primary Dx) 02/22/2025 Telephone Adult [address] [phone] Miriam Paul, PharmD 02/16/2025 Telephone Adult [address] [phone] Betty Bowman MD 02/16/2025 Results Follow-Up [address] [phone] Loreto Bermudez PA 02/16/2025 Results Follow-Up [address] [phone] Betty Bowman MD 02/15/2025 1:00 PM EDT Office Visit [address] [phone] Betty Bowman MD Diabetic ketoacidosis without coma associated with type 2 diabetes mellitus ([facility] V24, [facility] V28) (Primary Dx); Primary hypertension; Other hyperlipidemia; Type 2 diabetes mellitus with stage 3 chronic kidney disease, with long-term current use of insulin, unspecified whether stage 3a or 3b CKD ([facility] V24, [facility] V28); Stage 3a chronic kidney disease ([facility] V24, [facility] V28); Abnormal red cell volume; Thrombocytopenia ([facility] V24); Morbid obesity with BMI of 40.0-44.9, adult ([facility] V24, [facility] V28) 02/11/2025 Telephone Adult Medicine [address] [phone] Betty Bowman MD 02/08/2025 Telephone Adult Medicine [address] [phone] Betty Bowman MD from Last 3 Months Immunizations Immunization Administration Dates Next Due DTaP, Unspecified 01/03/2011 Influenza Quadrivalent, 0.5m l, preservative free (Fluarix; FluLaval; Fluzone) ages 6mo and older (Afluria) 3yo and older 01/22/2019 Influenza trivalent, 0.5mL, preservative free (Fluarix; FluLaval; Fluzone) ages 6mo and older (Afluria) 3 years and older 02/07/2012,01/22/2011,01/22/2010 Influenza trivalent, with pr eservative (Fluzone; Afluria) 6mo and older 02/07/2012,01/22/2011,01/22/2010 Influenza, Unspecified 01/03/2015,2011,01/04/2012,02/05,03/25/2005,03/15/2003 Pneumococcal polysaccharide 23 valent (Pneumovax 23) 2yo and older 01/22/2011 Pneumococcal, Unspecified 08/13/2012 Td, Unspecified 01/03/2011,05/05/2010 Surgical History Surgery Date Site/Laterality Comments HERNIA REPAIR repair umbilical hernia LITHOTRIPSY 02/2019 Bilateral OTHER SURGICAL HISTORY Bilateral : varicose veins - Dr. Bro Medical History Medical History Date Comments Urolithiasis 04/24/2010 HTN (hypertension) 08/14/2010 DM (diabetes mellitus), type 2 with peripheral vascular complications ([facility] V24, [facility] V28) 02/06/2015 NS (nuclear sclerosis), bilateral 05/28/2017 Microalbuminuria 05/28/2017 Sarcoidosis, lung ([facility] V24) 09/11/2012 Type 2 diabetes mellitus wit h cataract ([facility] V24, [facility] V28) 06/08/2019 Nuclear sclerosis Varicose veins of both lower extremities 021 Erectile dysfunction 03/11/2024 Morbid obesity with BMI of 4 0.0-44.9, adult ([facility] V24, [facility] V28) 03/16/2024 Type II diabetes mellitus wi th renal manifestations ([facility] V24, [facility] V28) 05/28/2017 Family History Medical History Relation Name Comments Cataracts Maternal Grandmother Pancreatic cancer Paternal Grandfather Relation Name Status Comments Father Alive Maternal Grandfather Maternal Grandmother Mother Alive Paternal Grandfather Paternal Grandmother Social History Tobacco Use Types Packs/Day Years Used Date Smoking Tobacco: Never Smokeless Tobacco: Never Tobacco Cessation:Counseling Given: Not Answered Alcohol Use Standard Drinks/Week Comments No 0 (1 standard drink = 0.6 oz pur e alcohol) Housing Instability Answer Date Recorde d Are you worried that in the next 2 months you may not have stable housing? No 02/17/2025 Access to Healthcare Answer Date Record ed Within the last 3 months, ho w many times did you visit the emergency department for your medical care? 1 02/17/2025 Transportation Answer Date Recorded Has the lack of transportati on kept you from meetings, work, or from getting things needed for daily living? Yes Has the lack of transportati on kept you from medical appointments or from getting medications? Yes 02/17/2025 Food Risk Answer Date Recorded Within the past 12 months we worried whether our food would run out before we got money to buy more. Never true 02/17/2025 Within the past 12 months th e food we bought just didn t last and we didn t have money to get more. Not on file 02/17/2025 Living Situation Answer Date Recorded What is your living situation? Unrecognized valu e 02/17/2025 Sex and Gender Information Value Date Recorded Sex Assigned at Not on file Legal Sex Male 11:11 PM EST Gender Identity Not on file Sexual Orientation Not on file Last Filed Vital Signs Vital Sign Reading Time Taken Comments Blood Pressure 120/62 03/23/2025 1:29 PM EST Pulse 83 03/23/2025 1:29 PM EST Temperature 36.3 C (97.3 F) 03/23/2025 1:29 PM EST Respiratory Rate 16 03/23/2025 1:29 PM EST Oxygen Saturation 93% 03/23/2025 1:29 PM EST Inhaled Oxygen Concentration - - Weight 151 kg (332 lb) 03/23/2025 1:29 PM EST Height 177.8 cm (5' 10 ) 03/23/2025 1:29 PM EST Body Mass Index 47.64 03/23/2025 1:29 PM EST Plan of Treatment Upcoming Encounters Date Type Department Care Team (Late st Contact Info) Description 05/19/2025 1:00 PM EST Office Visit Adult Medicine [address] [phone] Loreto Bermudez PA [address] [place], [place] Health Maintenance Due Date Last Done Comments COVID-19 Vaccine (#1) 1975 Diabetes: Annual Foot Exam 1980 Hepatitis B Vaccines (1 of 3 - 19+ 3-dose series) 1989 Zoster Vaccines (1 of 2) 1989 Pneumococcal Vaccine: 50+ Years (2 of 2 - PCV) 08/13/2013 08/13/2012, 01/22/2011 RSV Immunization Adult Patients (1 - Risk 50-74 years 1-dose series) 2020 DTaP,Tdap,and Td Vaccines (4 - Td or Tdap) 01/03/2021 01/03/2011, 01/03/2011, 05/05/2010 Medicare Annual Wellness Visit 04/13/2022 Depression Screening 05/05/2024 Diabetes: Annual Retina Eye Exam 11/17/2024 11/18/2023, 11/18/2023 Influenza Vaccine (#1) 2025 9, 01/03/2015, 02/07/2012, Additional history exists Diabetes: Blood Sugar Control Test (HGBA1C) 08/16/2025 02/15/2025, 05/17/2024, 12/10/2023, Additional history exists Diabetes: Annual Urine Albumin-Creatinine Ratio (uACR) 02/15/2026 02/15/2025, 05/26/2023, 05/26/2023 Diabetes: Annual GFR (Glomerular Filtration Rate) 02/15/2026 02/15/2025, 05/17/2024, 12/10/2023, Additional history exists Hypertension/CHF/CAD Annual BMP Blood Test 02/15/2026 02/15/2025, 05/17/2024, 12/10/2023, Additional history exists Social Influencers of Health Screening 02/17/2026 02/17/2025 Colorectal Cancer Screening: FIT-DNA (Cologuard) 01/04/2027 01/05/2024, 01/05/2024 Cholesterol Screening (Lipid Panel) 05/17/2029 05/17/2024, 05/26/2023, 05/26/2023 HIV Screening Completed 02/10/2018 Hepatitis C Screening Completed 02/10/2018 HIB Vaccines Aged Out No longer eligi ble based on patient's age to complete this topic HPV Vaccines Aged Out No longer eligi ble based on patient's age to complete this topic Hepatitis A Vaccines Aged Out No long er eligible based on patient's age to complete this topic IPV Vaccines Aged Out No longer eligi ble based on patient's age to complete this topic MMR Vaccines Aged Out No longer eligi ble based on patient's age to complete this topic Meningococcal ACWY Vaccine Aged Out N o longer eligible based on patient's age to complete this topic Meningococcal B Vaccine Aged Out No l onger eligible based on patient's age to complete this topic RSV Immunization Patients Under 20 months Aged Out No longer eligible based on patient's age to complete this topic Varicella Vaccines Aged Out No longer eligible based on patient's age to complete this topic Goals Goal Patient Goal Type Associated Problems Recent Progress Patient-Stated? Author Pt will have an improvement in his insomnia General Yes Becky Abbasi, RN Note: 03/21/25 Pt has been struggling with his sleep quality and endorses taking many supplements. He also state at times post nasal drip can wake him up will offer ov to see what interventions would be advisable and for a med/supplement review with Dr Bowman Procedures Procedure Name Priority Date/Time Associated Diagnosis Comments CBC WITH AUTO DIFFERENTIAL Routine 02/15/2025 1:49 PM EDT Abnormal red cell volume Thrombocytopenia (CMS/HCC V24) MICROALBUMIN CREATININE URINE RATIO Routine 02/15/2025 1:49 PM EDT Type 2 diabetes mellitus with stage 3 chronic kidney disease, with long-term current use of insulin, unspecified whether stage 3a or 3b CKD (CMS/HCC V24, CMS/HCC V28) HEMOGLOBIN A1C Routine 02/15/2025 1:49 PM EDT Type 2 diabetes mellitus with stage 3a chronic kidney disease, with long-term current use of insulin (CMS/HCC V24, CMS/HCC V28) CBC AND DIFFERENTIAL Routine 02/15/2025 1:49 PM EDT Abnormal red cell volume Thrombocytopenia (CMS/HCC V24) VITAMIN B12 AND FOLATE Routine 02/15/2025 1:49 PM EDT Abnormal red cell volume BASIC METABOLIC PANEL Routine 02/15/2025 1:49 PM EDT Diabetic ketoacidosis without coma associated with type 2 diabetes mellitus (CMS/HCC V24, CMS/HCC V28) LIPID PANEL WITH REFLEX TO DIRECT LDL Routine 05/17/2024 4:22 PM EST Other hyperlipidemia DIABETES EYE EXAM Routine 11/18/2023 HEPATITIS C SCREENING Routine 02/10/2018 HIV SCREENING Routine 02/10/2018 from Last 3 Months or Most Recently Relevant to Health Maintenance Results * Vitamin B12 and folate (02/15/2025 1:49 PM EDT) [facility] Vitamin B-12 749 250 - 900 pcg/mL LAB CHEMISTRY METHOD 02/15/2025 7:13 PM EDT [facility] Folate 3.7 2.8 - 17.0 ng/ml LAB CHEMISTRY METHOD 02/15/2025 7:13 PM EDT [facility] Blood Venous blood specimen / Unknown Venipuncture / Unknown 02/15/2025 1:49 PM EDT 02/15/2025 1:49 PM EDT us Betty Bowman MD LAB BLOOD ORDERABLES Final Resul t [facility] [address] [place] [address], * (ABNORMAL) CBC auto differential (02/15/2025 1:49 PM EDT) [facility] WBC 5.0 4.8 - 10.8 K/mcL LAB HEMETOLOGY METHOD 02/15/2025 4:31 PM EDT [facility] RBC 3.80(L) 4.50 - 5.50 M/mcL LAB HEMETOLOGY METHOD 02/15/2025 4:31 PM EDT [facility] Hemoglobin 13.9 13.5 - 17.5 g/dL LAB HEMETOLOGY METHOD 02/15/2025 4:31 PM EDT [facility] Hematocrit 41.1(L) 42.0 - 54.0 % LAB HEMETOLOGY METHOD 02/15/2025 4:31 PM EDT [facility] MCV 107.9(H) 79.0 - 98.0 FL LAB HEMETOLOGY METHOD 02/15/2025 4:31 PM EDT [facility] MCH 36.5(H) 27.0 - 32.0 pcg LAB HEMETOLOGY METHOD 02/15/2025 4:31 PM EDT [facility] MCHC 33.8 32.0 - 37.0 g/dL LAB HEMETOLOGY METHOD 02/15/2025 4:31 PM EDT [facility] RDW 13.1 11.0 - 15.0 % LAB [facility] 241 130 - 400 K/mcL LAB [facility]25 4:[facility] MPV 9.3 7.0 - 11.0 FL LAB HEMETOLOGY METHOD 02/15/2025 4:31 PM EDT [facility] NRBC 0.0 <1.0 % LAB [facility]OLOGY [facility] NRBC Absolute 0.00 <0.10 K/mcL LAB HEMETOLOGY METHOD 02/15/2025 4:31 PM [facility] Neutrophils Relative 59.1 % LAB HEMETOLOGY METHOD 02/15/2025 4:31 PM EDT [facility] Lymphocytes Relative 22.4 % LAB HEMETOLOGY METHOD 02/15/2025 4:31 PM EDT [facility] Monocytes Relative 13.9 % LAB HEMETOLOGY METHOD [facility]/15[facility]25 4:[facility] Eosinophils Relative 3.0 % LAB HEMETOLOGY METHOD 02/15/2025 4:31 PM EDT [facility] Basophils Relative 1.4 % LAB HEMETOLOGY METHOD 02/15/2025 4:31 PM EDT [facility] Immature Granulocytes Relative 0.2 % LAB HEMETOLOGY METHOD 02/15/2025 4:31 PM EDT [facility] Neutrophils Absolute 2.92 1.50 - 7.00 K/mcL LAB HEMETOLOGY METHOD 02/15/2025 4:31 PM EDT [facility] Lymphocytes Absolute 1.11 1.00 - 5.00 K/mcL LAB HEMETOLOGY METHOD 02/15/2025 4:31 PM EDT [facility] Monocytes Absolute 0.69 0.20 - 1.00 K/mcL LAB HEMETOLOGY METHOD 02/15/2025 4:31 PM EDT [facility] Eosinophils Absolute 0.15 0.00 - 0.50 K/mcL LAB HEMETOLOGY METHOD 02/15/2025 4:31 PM EDT [facility] Basophils Absolute 0.07 0.00 - 0.20 K/mcL LAB HEMETOLOGY METHOD 02/15/2025 4:31 PM EDT [facility] Immature Granulocytes Absolute 0.01 0.00 - 0.03 K/mcL LAB HEMETOLOGY METHOD 02/15/2025 4:31 PM EDT [facility] Blood Venous blood specimen / Unknown Venipuncture / Unknown 02/15/2025 1:49 PM EDT 02/15/2025 1:49 PM EDT us Betty Bowman MD LAB BLOOD ORDERABLES Final Resul t [facility] [address] [place] [address], * Microalbumin creatinine urine ratio (02/15/2025 1:49 PM EDT) Creatinine, Urine 186.0 mg/dL LAB CHEMISTRY METHOD 02/15/2025 7:44 PM EDT [facility] Microalb, Ur 13.4 0.0 - 29.0 mg/L LAB CHEMISTRY METHOD 02/15/2025 7:44 PM EDT [facility] Microalb/Creat Ratio 7 <30 mg/g creat LAB CHEMISTRY METHOD 02/15/2025 7:44 PM EDT [facility] Urine Urine specimen obtained by clean catch procedure / Unknown Non-blood Collection / Unknown 02/15/2025 1:49 PM EDT 02/15/2025 1:49 PM EDT us Betty Bowman MD LAB URINE ORDERABLES Final Resul t Performing Organization Address [facility]/ZIP Co de Phone Number [facility] [address] [place] [address], [place] [phone] * Hemoglobin A1c (02/15/2025 1:49 PM EDT) Hemoglobin A1C 6.2 <6.5 % LAB CHEMISTRY METHOD 02/15/2025 10:00 PM EDT [facility] Mean Bld Glu Estim. 131 mg/dL LAB CHEMISTRY METHOD 02/15/2025 10:00 PM EDT [facility] Blood Venous blood specimen / Unknown Venipuncture / Unknown 02/15/2025 1:49 PM EDT 02/15/2025 1:49 PM EDT us Loreto JARAMILLO LAB BLOOD ORDERABLES Final Re sult [facility] [address] [place] [address], [place] [phone] * (ABNORMAL) Basic metabolic panel (02/15/2025 1:49 PM EDT) Sodium 135 133 - 145 mmol/L LAB CHEMISTRY METHOD 02/15/2025 6:51 PM EDT [facility] Potassium 4.1 3.5 - 5.5 mmol/L LAB CHEMISTRY METHOD 02/15/2025 6:51 PM [facility] Chloride 99 96 - 110 mmol/L LAB CHEMISTRY METHOD 02/15/2025 6:51 PM [facility] CO2 29 21 - 32 mmol/L LAB CHEMISTRY METHOD 02/15/2025 6:51 PM [facility] Anion Gap 7 3 - 11 LAB CHEMISTRY METHOD 02/15/2025 6:51 PM T [facility] Glucose 213(H) 70 - 100 mg/dL LAB CHEMISTRY METHOD 02/15/2025 6:51 PM [facility] BUN 16 5 - 25 mg/dL LAB CHEMISTRY METHOD 02/15/2025 6:51 PM [facility] Creatinine 1.06 0.70 - 1.30 mg/dL LAB CHEMISTRY METHOD 02/15/2025 6:51 PM [facility] eGFR 83 >=60 mL/min/1. 73m2 LAB CHEMISTRY METHOD 02/15/2025 6:51 PM [facility] Comment:Calculation based on the Chronic Kidney Disease Epidemiology Collaboration (CKD-EPI) equation refit without adjustment for race. BUN/Creatinine Ratio 15.1 LAB CHEMISTRY METHOD 02/15/2025 6:51 PM [facility] Calcium 9.1 8.5 - 10.5 mg/dL LAB CHEMISTRY METHOD 02/15/2025 6:51 PM [facility] Blood Venous blood specimen / Unknown Venipuncture / Unknown 02/15/2025 1:49 PM EDT 02/15/2025 1:49 PM EDT us Betty Bowman MD LAB BLOOD ORDERABLES Final Resul t [facility] [address] [place] [address], [place] [phone] * (ABNORMAL) Lipid panel with reflex to direct LDL (05/17/2024 4:22 PM EST) [facility] Cholesterol 191 0 - 200 mg/dL LAB CHEMISTRY METHOD 05/17/2024 6:41 PM EST [facility] Triglycerides 82 0 - 150 mg/dL LAB CHEMISTRY METHOD 05/17/2024 6:41 PM EST [facility] HDL 39(L) >=40 mg/dL LAB CHEMISTRY METHOD 05/17/2024 6:41 PM EST [facility] LDL Calculated 136(H) 0 - 100 mg/dL LAB CHEMISTRY METHOD 05/17/2024 6:41 PM [facility] VLDL Cholesterol Severo 16.4 mg/dL LAB CHEMISTRY METHOD 05/17/2024 6:41 PM EST [facility] Non HDL Chol. (LDL+VLDL) 152(H) <145 mg/dL LAB CHEMISTRY METHOD 05/17/2024 6:41 PM EST [facility] Chol/HDL Ratio 4.9(H) 0.0 - 4.4 LAB CHEMISTRY METHOD 05/17/2024 6:41 PM EST [facility] Blood Venous blood specimen / Unknown Venipuncture / Unknown 05/17/2024 4:22 PM EST 05/17/2024 4:22 PM EST Betty Bowman MD LAB BLOOD ORDERABLES Final Resul t [facility] [address] [place] [address], [place] [phone] * Diabetes Eye Exam (11/18/2023) [facility] Diabetes: Annual Retina Eye Exam abstracted Historical Provider HEALTH MAINTENANCE Final Result * HIV Screening (02/10/2018) [facility] HIV Screening abstracted Historical Provider HEALTH MAINTENANCE Final Result * Hepatitis C Screening (02/10/2018) Hepatitis C Screening abstracted Historical Provider HEALTH MAINTENANCE Final Result from Last 3 Months or Most Recently Relevant to Health Maintenance Insurance MEDICARE [place]ICAID [place] Care Teams Quality Audit Representative Relationship Specialty Start Date End Date Betty Bowman MD [address] [place] [phone] PCP - General Internal Medicine 09/27/20
--- OUTSIDE RECORDS SUMMARY | 2025-04-19 21:43 | XMS_ITS | Encounter Summary ---
Author Organization [facility] Address [address] [place] [address] Care Team Providers Care Senior Electrical Design Engineer Name Role Phone Betty Bowman MD Primary Care Provider Encounter Details Date Type Department Care Team (Late st Contact Info) Description 02/16/2025 Results Follow-Up Adult Medicine [facility] [address] [place], [place] [phone] Betty Bowman MD [address] [place], [place] Social History Tobacco Use Types Packs/Day Years Used Date Smoking Tobacco: Never Smokeless Tobacco: Never Alcohol Use Standard Drinks/Week Comments No 0 [...] on file Sexual Orientation Not on file documented as of this encounter Plan of Treatment Upcoming Encounters Date Type Department Care Team (Late st Contact Info) Description 05/19/2025 1:00 PM EST Office Visit Adult Medicine [facility] [address] [place], [place] [phone] Loreto Bermudez PA [address] [place], [place] documented as of this encounter Goals Goal Patient Goal Type Associated Problems [...] for a med/supplement review with Dr Bowman documented as of this encounter Visit Diagnoses Not on filedocumented in this encounter Care Teams Senior Electrical Design Engineer Relationship Specialty Start Date End Date Betty Bowman MD [address] [place] [address] PCP - General Internal Medicine 09/27/20 documented as of this encounter
--- OUTSIDE RECORDS SUMMARY | 2025-04-19 21:43 | XMS_ITS ---
Author Name [facility] Organization Unknown History of Medication Use Medication Directions Dispensed Refills Start Date End Date Stat us amoxicillin-pot clavulanate 02/13/2025 active polymyxin B sulf-trimethoprim 02/13/2025 active insulin glargine-yfgn 01/19/2025 active losartan potassium 08/24/2024 ac tive tamsulosin HCl 05/13/2024 active metformin HCl 02/15/2024 active Encounters Encounter Type Encounter Reason Primary Diagnosis Location Date Ambulatory TBE Other mucopurule nt conjunctivitis, bilateral [facility]) 02/13/2025 Ambulatory TBE Nausea with vomi ting, unspecified [facility]) 02/06/2025 Care Team Organization Name Specialty Phone Email Start Date End Da te [facility] 02/06/2025 [facility] 02/06/2025
--- OUTSIDE RECORDS SUMMARY | 2025-04-19 21:43 | XMS_ITS | Encounter Summary ---
Author Organization [facility] Address [address] [place] [address] Care Team Providers Care Spun Paste Machine Operator Name Role Phone Betty Bowman MD Primary Care Provider [phone] Encounter Details Date Type Department Care Team (Late st Contact Info) Description 02/16/2025 Results Follow-Up Adult Medicine [facility] [address], [place] [phone] Loreto Bermudez PA [address] [place], [place] Social History Tobacco Use Types Packs/Day [...] 1:00 PM EST Office Visit Adult Medicine [facility] [address], [place] [phone] Loreto Bermudez PA [address] [place], [place] documented as of this encounter Goals [...] on filedocumented in this encounter Care Teams Spun Paste Machine Operator Relationship Specialty Start Date End Date Betty Bowman MD [address] [place], [place] PCP - General Internal Medicine 09/27/20 documented as of this encounter
--- OUTSIDE RECORDS SUMMARY | 2025-04-19 21:43 | XMS_ITS | Clinical Summary ---
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 0 Active liraglutide (VICTOZA) injection 18 mg/3 mL Inject 1.8 mg under the skin daily. 0 Active Insulin Aspart (NOVOLOG FLEXPEN SC) Inject 16 Units under the skin 3 (three) times a day with meals. 0 Active triamcinolone acetonide (KENALOG-40) 40 MG/ML injection Inject 40 mg into the articular space once. 0 Active Insulin Glargine (Basaglar KwikPen) 100 UNIT/ML SOPN Inject 45 Units under the skin every night at bedtime. 0 Active Active Problems Problem Noted Date Diagnosed Date Nephrolithiasis 06/16/2020 Onychomycosis 09/23/2018 Osteoarthritis of knees, bilateral 08/31/2018 Staghorn renal calculus 10/16/2017 Overview: Dr. Coleman - rec bilateral ureteroscopies 2018 NS (nuclear sclerosis), bilateral 05/28/2017 Type 2 diabetes mellitus 02/06/2015 Overview: Nuclear sclerosis Morbid obesity with BMI of 40.0-44.9, adult 11/2013 Sarcoidosis, lung 09/11/2012 Hyperlipidemia 12/17/2010 Hypertension 08/14/2010 Plantar fasciitis 01/22/2010 Overview: Right foot Family History Medical History Relation Name Comments Cancer Paternal Grandfather Relation Name Status Comments Paternal Grandfather Social History Tobacco Use Types Packs/Day Years Used Date Smoking Tobacco: Never Smokeless Tobacco: Never Alcohol Use Standard Drinks/Week Comments Not Currently 0 (1 standard drink = 0.6 oz pur e alcohol) Sex and Gender Information Value Date Recorded Sex Assigned at Not on file Gender Identity Not on file Sexual Orientation Not on file Last Filed Vital Signs Vital Sign Reading Time Taken Comments Blood Pressure 131/82 01/25/2021 10:32 AM EDT Pulse 102 01/25/2021 10:32 AM EDT Temperature 36.7 C (98 F) 01/25/2021 10:32 AM EDT Respiratory Rate - - Oxygen Saturation 94% 01/25/2021 10:32 AM EDT Inhaled Oxygen Concentration - - Weight 122.5 kg (270 lb) 01/25/2021 10:32 AM EDT Height 185.4 cm (6' 1 ) 01/25/2021 10:32 AM EDT Body Mass Index 35.62 01/25/2021 10:32 AM EDT Plan of Treatment Health Maintenance Due Date Last Done Comments Hepatitis B Vaccines (1 of 3 - 3-dose series) 1970 Hepatitis C Screening 1970 COVID-19 Vaccine (#1) 1970 Depression Screening 1982 Preventative Health Evaluation 1988 DTap / Tdap / Td (1 - Tdap) 1989 Pneumococcal Vaccine (2 of 2 - PCV) 01/23/2012 01/22/2011 Colon Cancer Screening (Colonoscopy) 2015 Shingrix-Zoster Vaccine (1 o f 2) 2020 Influenza Vaccine (#1) 2025 2, 01/22/2011, 01/22/2010 RSV Ped < 20 months Aged Out No longe r eligible based on patient's age to complete this topic
--- NOTE | 2025-04-19 22:00 | PC.NURSE ---
Arrives from triage. Vomited upon arrival. In ED 18, awaiting ED provider evaluation.
[2025-04-19 22:06] VITALS: BP 129/83; PULSE 122; RESP 16; TEMP 36.9; O2SAT 100
[2025-04-19 22:50] LABS: VBG HCO3 10 mmol/L (22-26); VBG O2 % Saturation 83.0 %
--- NOTE | 2025-04-19 23:02 | PC.NURSE ---
20g IV access established bilaterally by this RN. Normal Saline infusing as ordered. Alert/oriented. Labs drawn and sent for analysis. Results pending.
[2025-04-19 23:03] LABS: Venous Blood Gas Refer to POC result
[2025-04-19 23:07] LABS: Acetaminophen LAB < 3 mcg/mL (<30)
[2025-04-19] MEDS: iohexoL 350 MG/ML 100 ML INFUS..BTL 85 ML IV (23:27)
[2025-04-20] VITALS (20 sets, daily range): BP systolic 115–173; BP diastolic 53–87; PULSE 87–122; RESP 12–23; TEMP 36.6–37.2; O2SAT 92–100
--- NOTE | 2025-04-20 01:36 | P.HPHOSP_ITS ---
History of Present Illness Date of Service: 04/20/25 [facility] Medical History (Updated 04/20/25 @ 01:24 by Ld Ortiz PA-C) Hypertension Hyperlipidemia Sarcoidosis Morbid obesity Microalbuminuric diabetic nephropathy Staghorn renal calculus Bilateral primary osteoarthritis of knee Onychomycosis Type 2 diabetes mellitus Family History Father CVA (cerebral vascular accident) Social History Household Members Other:: lives alone Housing: House Alcohol intake: never Patient Tobacco Use Status: Never used Tobacco Advance Directives: No Advance Directives Information Provided: No Do you have a plan to hurt others: No Plan service: No Current occupational status: retired Current occupation: Formerly worked at [employer] Allergies Allergy/AdvReac Type Severity Reaction Status Date / Time adhesive tape AdvReac Mild Unknown Verified 04/19/25 19:13 Active Medications: Current Medications Acetaminophen (Acetaminophen 325 Mg Tablet) 650 mg PO Q6H PRN PRN Reason: Pain, Mild 1-3,fever,headache Calcium Carbonate (Calcium Carbonate 750 Mg Tab.Chew) 750 mg PO Q4H PRN PRN Reason: Heartburn Dextrose (Dextrose 50 % 25 Gm/50 Ml Syringe) 25 gm IVPUSH Q15M PRN; Protocol PRN Reason: per Hypoglycemia Standing Ord. Folic Acid (Folic Acid 1 Mg Tablet) 1 mg PO DAILY [facility] Stop: 04/23/25 08:59 Glucose (Glucose Gel 15 Gm Gel..Gram.) 15 gm PO Q15M PRN; Protocol PRN Reason: per Hypoglycemia Standing Ord. Lactated Ringer's (Lr) 1,000 mls @ 100 mls/hr IVCONT .Q10H [facility] Insulin Human Lispro (Insulin Lispro 100 Unit/Ml 3 Ml Vial) 0 unit SUBCUT QIDACHS [facility]; Protocol Magnesium Hydroxide (Milk Of Magnesia 30 Ml Oral.Susp) 30 ml PO DAILY PRN PRN Reason: Constipation Melatonin (Melatonin 3 Mg Tablet) 6 mg PO BEDTIME PRN PRN Reason: Insomnia Multivitamins/Vitamin C (Multivitamin Tablet) 1 tab PO DAILY [facility] Stop: 04/23/25 08:59 Pantoprazole Sodium (Pantoprazole Sodium 40 Mg/10 Ml Vial) 40 mg IVPUSH DAILY@0630 [facility] Sodium Chloride (0.9 % Sodium Chloride Flush 3 Ml Syringe) 3 ml IVFLUSH QSHIFT [facility] Thiamine HCl (Thiamine Hcl 100 Mg Tablet) 100 mg PO DAILY [facility] Stop: 04/23/25 08:59 Home Medications ?Medication ?Instructions ?Recorded ?Confirmed ?Last Taken ?Type insulin aspart U-100 100 unit/mL 1 sliding scale dose subcut 02/19/22 Unknown History (3 mL) subcutaneous pen (Novolog USEASDIRECTD FlexPen U-100 Insulin aspart) liraglutide (weight loss) 3 mg/0.5 1.8 mg subcut DAILY 02/19/22 Unknown History mL (18 mg/3 mL) subcut pen injector metformin 500 mg tablet 500 mg PO BID 02/19/22 Unkn own History hydroxyzine HCl 25 mg tablet 25 mg PO BEDTIME PRN 05/07 Unknown History losartan 25 mg tablet 25 mg PO DAILY 06/03/23 Unk nown History semaglutide 14 mg tablet (Rybelsus) 14 mg PO DAILY Unknown History trazodone 50 mg tablet 50 mg PO BEDTIME PRN 4 Unknown History Physical Exam 2 Vital Signs and Narrative: Vital Signs: Last Vital Signs Temp 98.1 F 04/20/25 01:08 Pulse 116 H 04/20/25 01:08 Resp 20 04/20/25 01:08 BP 173/83 H 04/20/25 01:08 Pulse Ox 100 04/20/25 01:08 O2 Del Method Room Air 04/20/25 01:08 BMI result Body Mass Index 45.9 Results Labs 04/19/25 19:40 04/19/25 19:40 Labs: Laboratory Results - last 24 hr 04/19/25 04/19/25 04/19/25 19:11 19:40 20:41 MCV 110.3 H MCH 37.8 H MCHC 34.2 RDW 14.5 Plt Count 74 L D MPV 9.2 L Immature Gran % (Auto) 0.2 Neut % (Auto) 82.0 H Lymph % (Auto) 6.[address] [place] % (Auto) 10.0 Eos % (Auto) 0.9 Baso % (Auto) 0.9 Lymph # (Auto) 0.[address] [place] # (Auto) 0.4 Eos # (Auto) 0.0 Baso # (Auto) 0.0 Abs Immat Gran (auto) 0.01 Absolute Neuts (auto) 3.5 Absolute Nucleated RBC 0.000 Nucleated RBC % (auto) 0.0 PT 12.7 INR 1.0 APTT 29.1 VBG pH VBG pCO2 VBG pO2 VBG HCO3 VBG O2 Saturation VBG Base Excess Anion Gap 33 H Estim Creat Clear Calc 100.2 Estimated GFR > 60 POC Glucose 160 H Random Glucose 178 H Calcium 8.8 Total Bilirubin 3.6 H Direct Bilirubin AST 171 H ALT 120 H Alkaline Phosphatase 155 H Troponin I High Sens 8.7 Total Protein 8.1 H Albumin 4.7 Lipase 32 Beta-Hydroxybutyrate 13.04 H Urine Color Dark Yellow Urine Appearance Clear Urine pH 5.5 Ur Specific [place] 1.020 Urine Protein 100 (2+) H Urine Glucose (UA) Negative Urine Ketones >=160 Urine Blood Large (3+) H Urine Nitrite Negative Ur Leukocyte Esterase Negative Urine RBC >20 H Urine WBC 0-5 Ur Squamous Epith Cells 0-2 Urine Bacteria None Seen Hyaline Casts 6-10 Acetaminophen Ethyl Alcohol Influenza Type A (PCR) NEGATIVE Influenza Type B (PCR) NEGATIVE RSV RNA Qual (PCR) NEGATIVE SARS-CoV-2 RNA (RT-PCR) NEGATIVE 04/19/25 04/19/25 22:39 22:44 MCV MCH MCHC RDW Plt Count MPV Immature Gran % (Auto) Neut % (Auto) Lymph % (Auto) [place] % (Auto) Eos % (Auto) Baso % (Auto) Lymph # (Auto) [place] # (Auto) Eos # (Auto) Baso # (Auto) Abs Immat Gran (auto) Absolute Neuts (auto) Absolute Nucleated RBC Nucleated RBC % (auto) PT INR APTT VBG pH 7.22 L VBG pCO2 24 VBG pO2 55 VBG HCO3 10 L VBG O2 Saturation 83.0 VBG Base Excess -15.1 Anion Gap Estim Creat Clear Calc Estimated GFR POC Glucose Random Glucose Calcium Total Bilirubin Direct Bilirubin 2.0 H AST ALT Alkaline Phosphatase Troponin I High Sens Total Protein Albumin Lipase Beta-Hydroxybutyrate Urine Color Urine Appearance Urine pH Ur Specific [place] Urine Protein Urine Glucose (UA) Urine Ketones Urine Blood Urine Nitrite Ur Leukocyte Esterase Urine RBC Urine WBC Ur Squamous Epith Cells Urine Bacteria Hyaline Casts Acetaminophen < 3 Ethyl Alcohol < 10 Influenza Type A (PCR) Influenza Type B (PCR) RSV RNA Qual (PCR) SARS-CoV-2 RNA (RT-PCR) Quality VTE VTE Risk Level:: Medical - moderate - high VTE Device Contraindication: Treatment Not Indicated VTE Drug Contraindication: N/A - Med Ordered
[2025-04-20 01:52] LABS: VBG HCO3 11 mmol/L (22-26); VBG O2 % Saturation 72.0 %
[2025-04-20 01:55] LABS: Venous Blood Gas Refer to POC result
[2025-04-20 02:05] LABS: Alanine Aminotransferase 106 U/L (0-40); Albumin Level 4.3 g/dL (3.5-5.0); Alkaline Phosphatase 138 U/L (39-117); Anion Gap 31 (12-20); Aspartate Amino Transferase 135 U/L (5-37); Blood Urea Nitrogen 21 mg/dL (9-16); Calcium 8.1 mg/dL (8.4-10.2); Carbon Dioxide 12 mmol/L (22-29); Chloride 99 mmol/L (96-108); Creatinine Clr Calc Pharmacy 95.4; Estimated Glomerular Filt Rate 59; Potassium 4.5 mmol/L (3.3-5.1); Sodium 137 mmol/L (135-145); Total Protein 7.4 g/dL (6.5-8.0)
--- NOTE | 2025-04-20 03:34 | PC.NURSE ---
Assumed care of pt at 2300. IV fluids still running from 4+L of NS. ELLA Jaffe ordered D5NS @125/hr. pt reporting n/v, ELLA notified ad pt medicated with IV Zofran with minimal relief. aware
[2025-04-20 03:53] LABS: Triglycerides 125 mg/dL (<150)
[2025-04-20 04:04] LABS: Glucose, Whole Blood 177 mg/dL (60-115)
[2025-04-20] MEDS: Insulin Regular/NS 100 UNIT/100 ML PLAST..BAG 8 UNIT IVCONT (04:36)
[2025-04-20 05:01] LABS: HBS Num1 0.00 mIU/mL (0-7.99); HBc Num1 0.07 S/CO (0.00-0.79); Hepatitis A Antibody IgM 0.19 Index (0-0.79); ~HepC Num1 0.10 S/CO (0.00-0.79); ~Hepatitis A Antibody IgM Nonreactive (Nonreactive); ~Hepatitis B Surface Antibody NONREACTIVE (Nonreactive); ~Hepatitis C Antibody Nonreactive (Nonreactive)
[2025-04-20 05:36] LABS: Glucose, Whole Blood 160 mg/dL (60-115)
--- NOTE | 2025-04-20 05:36 | PC.NURSE ---
Martínez ICU SHIP RIGGER at bedside to assess patient. Per Martínez titrate gtt to 1u/h. POC- recheck at 0530
[2025-04-20] MEDS: Dextrose 5 % and Lactated Ring 1,000 ML 150 ML IVCONT ×2 (06:23→14:24)
--- NOTE | 2025-04-20 06:42 | PM.CCHP ---
History of Present Illness Date of Service: 04/20/25 Attending physician on admission: James Gonzalez Chief Complaint: Nausea and vomiting ?The patient is a 55-year-old male with past medical history of diabetes mellitus, hypertension, and BPH who presented to the emergency department with 1?2?days of progressive nausea and multiple episodes of non-bloody, non-bilious vomiting. Patient reports had similar symptoms in February, and was admitted at [facility] for euglycemic DKA. ?Patient reports he only takes a ?white pill? for diabetes and regular insulin.? Per chart review ripton discharge, patient is supposed to be on metformin, short and longacting inulin. Patient denies being on SGLT2 inhibitor, reports has not taken GLP1 in over 6 months. Patient also reports a mechanical fall on Friday when he ?missed the bed? after feeling dizzy. Patient denies LOC but states a TV fell on his head, patient states he was eventually able to stand without assistance after dizziness subsided. Since the fall patient reports he feels unsteady when bending over to get into bed and reports that his ?legs just don?t seem to work. Patient denies alcohol use. Laboratory data was significant for WBC of 4.3, platelets 74, serum bicarb 11, beta hydroxybutyrate 13. Venous gas:? 7. Urine positive for ketones IMAGING: Abdomen CT: Acute interstitial edematous pancreatitis. HEAD Ct:? No acute findings ED COURSE: Patient received 4.3 L bolus, Zofran 4 mg, and Reglan 10 mg.? And started on insulin drip. Review of Systems Review of Systems: Yes all other systems are reviewed and are negative [facility] Past Medical History Medical History Hypertension Hyperlipidemia Sarcoidosis Morbid obesity Microalbuminuric diabetic nephropathy Staghorn renal calculus Bilateral primary osteoarthritis of knee Onychomycosis Type 2 diabetes mellitus Family History Family History Father CVA (cerebral vascular accident) Social History Social History Household Members: None Household Members Other:: lives alone Housing: House Do you presently have visiting nurse or other home services: No Alcohol intake: current Patient Tobacco Use Status: Never used Tobacco service: No Current occupational status: retired Current occupation: Formerly worked at [employer] Allergies Allergy/AdvReac Type Severity Reaction Status Date / Time adhesive tape AdvReac Mild Unknown Verified 04/19/25 19:13 Active Medications: Current Medications Dextrose (Dextrose 50 % 25 Gm/50 Ml Syringe) 25 gm IVPUSH Q30M PRN PRN Reason: BG < 70 Enoxaparin Sodium (Enoxaparin Sodium 40 Mg/0.4 Ml Syringe) 40 mg SUBCUT Q24H [facility] Insulin Human Regular (Myxredlin) 100 unit in 100 mls @ 8 mls/hr IVCONT .[id number] [facility]; Protocol Last Titration: 04/20/25 05:38 Dose: 1 unit/hr, 1 mls/hr Dextrose/Lactated Ringer's (D5lr) 1,000 mls @ 150 mls/hr IVCONT .[id number] [facility] Last Admin: 04/20/25 06:23 Dose: 150 mls/hr Ondansetron HCl (Ondansetron Hcl 4 Mg/2 Ml Vial) 4 mg IVPUSH Q6H PRN PRN Reason: Nausea and Vomiting Home Medications ?Medication ?Instructions ?Recorded ?Confirmed ?Last Taken ?Type metformin 500 mg tablet 500 mg PO BID 02/19/22 04/20/25 Unknown History losartan 25 mg tablet 25 mg PO DAILY 06/03/23 04/20/25 Unknown History insulin aspart U-100 100 unit/mL 6 - 8 unit subcut TIDWM 04/20/25 04/20/25 Unknown History (3 mL) subcutaneous pen melatonin 12 mg tablet 12 mg PO BEDTIME PRN Insomnia 04/20/25 04/20/25 Unknown History Physical Exam Exam: Exam: ?General:? Alert oriented x3 no acute distress.? Speaking full sentences.? Following all commands. ?HEENT:? Head is normocephalic, atraumatic, pupils equal round reactive to light accommodation bilaterally.? Extraocular movements appear intact.? Buccal mucosa is dry, Neck is supple ?Cardiac:? Clear S1-S2, no murmurs rubs or gallops. ?Pulmonary:? Clear to auscultation, no wheezes, rales or rhonchi. ?Abdomen:? ?Abdomen soft, non-distended. diffuse abdominal tenderness. No rebound tenderness. Normal bowel sounds. No pulsatile mass. ?Musculoskeletal:? Moving all 4 extremities upon request a major joints, there is no crepitus or tenderness.? The strength is 5/5 bilaterally and throughout all 4 extremities.? Gait not assessed at this point. ?Neurologic:? cranial nerves 2-12 are grossly intact.? No focal deficits noted.Motor strength as above.?? ?Skin:? Intact, no lesions, edema, erythema, clubbing or cyanosis.? No ulcers. Vascular:? 2+ pulses upper and lower extremities distally.? Vital Signs: Vital Signs: Last Vital Signs Temp 97.9 F 04/20/25 02:21 Pulse 122 H 04/20/25 02:21 Resp 23 H 04/20/25 02:21 BP 157/87 H 04/20/25 02:21 Pulse Ox 98 04/20/25 02:21 O2 Del Method Room Air 04/20/25 02:21 BMI result Body Mass Index 45.9 Results Labs 04/19/25 19:40 04/20/25 01:36 Labs: Laboratory Results - last 24 hr 04/19/25 04/19/25 04/19/25 19:11 19:40 20:41 MCV 110.3 H MCH 37.8 H MCHC 34.2 RDW 14.5 Plt Count 74 L D MPV 9.2 L Immature Gran % (Auto) 0.2 Neut % (Auto) 82.0 H Lymph % (Auto) 6.0 L [place] % (Auto) 10.0 Eos % (Auto) 0.9 Baso % (Auto) 0.9 Lymph # (Auto) 0.3 L [place] # (Auto) 0.4 Eos # (Auto) 0.0 Baso # (Auto) 0.0 Abs Immat Gran (auto) 0.01 Absolute Neuts (auto) 3.5 Absolute Nucleated RBC 0.000 Nucleated RBC % (auto) 0.0 PT 12.7 INR 1.0 APTT 29.1 VBG pH VBG pCO2 VBG pO2 VBG HCO3 VBG O2 Saturation VBG Base Excess Anion Gap 33 H Estim Creat Clear Calc 100.2 Estimated GFR > 60 POC Glucose 160 H Random Glucose 178 H Calcium 8.8 Total Bilirubin 3.6 H Direct Bilirubin AST 171 H ALT 120 H Alkaline Phosphatase 155 H Troponin I High Sens 8.7 Total Protein 8.1 H Albumin 4.7 Triglycerides Lipase 32 Beta-Hydroxybutyrate 13.04 H Urine Color Dark Yellow Urine Appearance Clear Urine pH 5.5 Ur Specific [place] 1.020 Urine Protein 100 (2+) H Urine Glucose (UA) Negative Urine Ketones >=160 Urine Blood Large (3+) H Urine Nitrite Negative Ur Leukocyte Esterase Negative Urine RBC >20 H Urine WBC 0-5 Ur Squamous Epith Cells 0-2 Urine Bacteria None Seen Hyaline Casts 6-10 Acetaminophen Ethyl Alcohol Hepatitis A IgM Ab Hep Bs Antibody Hep B Core Total Ab Hepatitis C Ab (EIA) Influenza Type A (PCR) NEGATIVE Influenza Type B (PCR) NEGATIVE RSV RNA Qual (PCR) NEGATIVE SARS-CoV-2 RNA (RT-PCR) NEGATIVE 04/19/25 04/19/25 04/20/25 22:39 22:44 01:36 MCV MCH MCHC RDW Plt Count MPV Immature Gran % (Auto) Neut % (Auto) Lymph % (Auto) [place] % (Auto) Eos % (Auto) Baso % (Auto) Lymph # (Auto) [place] # (Auto) Eos # (Auto) Baso # (Auto) Abs Immat Gran (auto) Absolute Neuts (auto) Absolute Nucleated RBC Nucleated RBC % (auto) PT INR APTT VBG pH 7.22 L VBG pCO2 24 VBG pO2 55 VBG HCO3 10 L VBG O2 Saturation 83.0 VBG Base Excess -15.1 Anion Gap 31 H Estim Creat Clear Calc 95.4 Estimated GFR 59 POC Glucose Random Glucose 179 H Calcium 8.1 L D Total Bilirubin 3.2 H Direct Bilirubin 2.0 H AST 135 H ALT 106 H Alkaline Phosphatase 138 H Troponin I High Sens Total Protein 7.4 Albumin 4.3 Triglycerides 125 Lipase Beta-Hydroxybutyrate 11.44 H Urine Color Urine Appearance Urine pH Ur Specific [place] Urine Protein Urine Glucose (UA) Urine Ketones Urine Blood Urine Nitrite Ur Leukocyte Esterase Urine RBC Urine WBC Ur Squamous Epith Cells Urine Bacteria Hyaline Casts Acetaminophen < 3 Ethyl Alcohol < 10 Hepatitis A IgM Ab Nonreactive Hep Bs Antibody NONREACTIVE Hep B Core Total Ab Nonreactive Hepatitis C Ab (EIA) Nonreactive Influenza Type A (PCR) Influenza Type B (PCR) RSV RNA Qual (PCR) SARS-CoV-2 RNA (RT-PCR) 04/20/25 04/20/25 04/20/25 01:43 04:01 05:32 MCV MCH MCHC RDW Plt Count MPV Immature Gran % (Auto) Neut % (Auto) Lymph % (Auto) [place] % (Auto) Eos % (Auto) Baso % (Auto) Lymph # (Auto) [place] # (Auto) Eos # (Auto) Baso # (Auto) Abs Immat Gran (auto) Absolute Neuts (auto) Absolute Nucleated RBC Nucleated RBC % (auto) PT INR APTT VBG pH 7.16 L* VBG pCO2 30 VBG pO2 47 VBG HCO3 11 L VBG O2 Saturation 72.0 VBG Base Excess -15.9 Anion Gap Estim Creat Clear Calc Estimated GFR POC Glucose 177 H 160 H Random Glucose Calcium Total Bilirubin Direct Bilirubin AST ALT Alkaline Phosphatase Troponin I High Sens Total Protein Albumin Triglycerides Lipase Beta-Hydroxybutyrate Urine Color Urine Appearance Urine pH Ur Specific [place] Urine Protein Urine Glucose (UA) Urine Ketones Urine Blood Urine Nitrite Ur Leukocyte Esterase Urine RBC Urine WBC Ur Squamous Epith Cells Urine Bacteria Hyaline Casts Acetaminophen Ethyl Alcohol Hepatitis A IgM Ab Hep Bs Antibody Hep B Core Total Ab Hepatitis C Ab (EIA) Influenza Type A (PCR) Influenza Type B (PCR) RSV RNA Qual (PCR) SARS-CoV-2 RNA (RT-PCR) Assessment and Plan (1) DKA (diabetic ketoacidosis): Status: Acute (2) Type 2 diabetes mellitus: Status: Acute (3) Gastroparesis due to DM: Status: Acute (4) Pancreatitis, chronic: Status: Acute Plan 55-year-old male with past medical history of diabetes mellitus, hypertension, and BPH admitted to ICU for management of euglycemic DKA requiring insulin drip Neuro:? Mechanical fall:? Head CT negative for acute findings, no neurological concerns on physical exam.? Weakness related to euDKA Cardiac:? Underlying history of hypertension:? medication reconciliation pending.? We will continue home meds when available Pulmonary:? no acute issues?? Renal:? No acute issues GI:?? Nausea and vomiting from gastroparesis. ? Continue Zofran p.r.n.,? Pancreatitis:? Abdominal CT concerning for interstitial edematous pancreatitis, but and triglycerides within normal limits.? Not consistent with acute pancreatitis.? Likely chronic. Endo:??? Euglycemic diabetic ketoacidosis:? Laboratory data is consistent with euglycemic DKA, patient has elevated beta hydroxybutyrate, urine positive for ketones, serum bicarb 11, with significant anion gap. ?Patient's has a history of being in GOP 1 point states that has not taken in the last 6 months, unsure as to what medication he takes.? I review discharge paperwork from February 2025 from [facility], patient is supposed to be on metformin, long-acting and short-acting insulin.? It does not seem to be on agents that will cause euglycemic DKA.? Official med reconciliation pending.? We will continue to treat DKA with insulin drip and fluids. Cont until gap is closed.? ID: ? no acute issues? Heme/Onc:? No acute issues. Psych:? No acute issues. Miscellaneous:? No acute issues. Prophylaxis: ? subQ lovenox Diet:? ? NPO okay to have ice chips Critical care time: does not qualify for critical care? CODE: FULL
[2025-04-20 07:17] LABS: Glucose, Whole Blood 101 mg/dL (60-115)
[2025-04-20 07:54] LABS: Venous Blood Gas Refer to POC result
[2025-04-20 07:54] LABS: VBG HCO3 13 mmol/L (22-26); VBG O2 % Saturation 99.0 %
[2025-04-20 08:54] LABS: Glucose, Whole Blood 98 mg/dL (60-115)
[2025-04-20 09:20] LABS: Glucose, Whole Blood 136 mg/dL (60-115)
[2025-04-20 10:09] LABS: Glucose, Whole Blood 139 mg/dL (60-115)
--- NOTE | 2025-04-20 10:13 | PHA.MEDREC ---
Pharmacy Consult ? Medication Reconciliation Pharmacy has completed the medication reconciliation. Spoke to patient to confirm medication list. Per patient, he uses insulin Fiasp 6-8 units tidac, no other insulin, and melatonin 12 mg at bedtime. He confirmed losartan 25 mg daily, metformin 500 mg bid and rosuvastatin 10 mg daily (even though [facility] has last fill day as 07/25/2022). Patient has no recollection of taking gabapentin even though there's recent pharamacy claims and he is not taking Rybelsus. He was unable to recall when he last took his medications at home.
[2025-04-20 10:52] LABS: MANUAL DIFF FLAG NO
--- NOTE | 2025-04-20 10:53 | MHC.CM.PN ---
IMM DELIVERED LIVES ALONE AND IS FUNCTIONALLY INDEPENDENT. PT GETS DIABETIC SUPPLIES VIA [employer]. NO SERVICES OR DME. PT DECLINES TO COMPLETE A HCP AND PCP IS DR. DOWNS. DP: HOME VS HOME WITH SERVICES? REFERRAL SENT TO [facility]. PT WILL NEED ASSIST WITH [facility]. PT WILL BENEFIT FROM A P.T. EVAL TO DETERMINE NEEDS. CM WILL CONTINUE TO FOLLOW FOR DC PLAN/NEEDS.
[2025-04-20 11:02] LABS: Hematocrit 43.4 % (42.0-52.0); Hemoglobin 14.7 g/dl (14.0-18.0); Imm Gran Abs Auto 0.01 X10*3/uL (0.00-0.03); Imm Gran Pct Auto 0.3 % (0.0-0.4); Lymphocytes Absolute Auto 0.3 X10*3/uL (1.2-4.9); Mean Corpuscular HGB Conc 33.9 g/dl (31.0-36.0); Mean Corpuscular Hemoglobin 37.4 pg (27.0-33.0); NRBC Abs Auto 0.000 X10*3/uL (0.0-0.012); NRBC Pct Auto 0.0 /100WBC (0.0-0.2); Red Blood Count 3.93 X10*6/uL (4.60-5.80); White Blood Count 3.9 X10*3/uL (4.8-10.8)
[2025-04-20 11:04] LABS: Mean Corpuscular Volume 110.4 fL (80.0-98.0); Platelet Count 54 X10*3/uL (160-400)
[2025-04-20 11:20] LABS: Glucose, Whole Blood 130 mg/dL (60-115)
[2025-04-20 11:28] LABS: Alanine Aminotransferase 86 U/L (0-40); Albumin Level 3.8 g/dL (3.5-5.0); Alkaline Phosphatase 120 U/L (39-117); Anion Gap 18 (12-20); Aspartate Amino Transferase 111 U/L (5-37); Blood Urea Nitrogen 20 mg/dL (9-16); Calcium 7.9 mg/dL (8.4-10.2); Carbon Dioxide 17 mmol/L (22-29); Chloride 106 mmol/L (96-108); Creatinine Clr Calc Pharmacy 105.4; Estimated Glomerular Filt Rate > 60; Magnesium 1.7 mg/dL (1.6-2.6); Potassium 3.8 mmol/L (3.3-5.1); Sodium 137 mmol/L (135-145); Total Protein 6.6 g/dL (6.5-8.0)
[2025-04-20 11:40] LABS: Glucose, Whole Blood 140 mg/dL (60-115)
[2025-04-20] MEDS: Sodium,Potassium Phosphates POWD.PACK 2 PACKET PO (12:29)
[2025-04-20 13:20] LABS: Glucose, Whole Blood 151 mg/dL (60-115)
[2025-04-20 14:10] LABS: Glucose, Whole Blood 164 mg/dL (60-115)
[2025-04-20] MEDS: Potassium Phosphate/NS 15 MMOL/250 ML PLAST..BAG 62.5 MMOL IV ×2 (14:22→18:13)
[2025-04-20 16:25] LABS: Anion Gap 15 (12-20); Blood Urea Nitrogen 21 mg/dL (9-16); Calcium 8.0 mg/dL (8.4-10.2); Carbon Dioxide 20 mmol/L (22-29); Chloride 104 mmol/L (96-108); Creatinine Clr Calc Pharmacy 116.7; Estimated Glomerular Filt Rate > 60; Potassium 4.1 mmol/L (3.3-5.1); Sodium 135 mmol/L (135-145)
--- NOTE | 2025-04-20 18:17 | PC.NURSE ---
Assumed care at 0700. Upon initial assessment, pt A&O x4 with insulin drip and D5LR running. Pt vague. Uncertain about own medical history & medication. Per MD, insulin drip to be adjusted in relation to pt?s bicarb so long as sugars are between 100-250. Goal for bicarb > 20. Pt repositioned q2hr as tolerated. Fall & safety precautions in place. See MAR and assessments for further details
[2025-04-20 18:21] LABS: Glucose, Whole Blood 172 mg/dL (60-115)
[2025-04-20] MEDS: Insulin Glargine,Hum.rec.anlog 100 UNIT/ML 10 ML VIAL 10 UNIT SUBCUT (19:21)
[2025-04-20 20:08] LABS: Glucose, Whole Blood 167 mg/dL (60-115)
[2025-04-20 23:59] LABS: Anion Gap 15 (12-20); Blood Urea Nitrogen 23 mg/dL (9-16); Calcium 8.1 mg/dL (8.4-10.2); Carbon Dioxide 20 mmol/L (22-29); Chloride 103 mmol/L (96-108); Creatinine Clr Calc Pharmacy 119.0; Estimated Glomerular Filt Rate > 60; Magnesium 1.6 mg/dL (1.6-2.6); Potassium 4.0 mmol/L (3.3-5.1); Sodium 134 mmol/L (135-145)
[2025-04-21] VITALS (14 sets, daily range): BP systolic 104–158; BP diastolic 38–78; PULSE 81–100; RESP 14–24; TEMP 36.2–36.8; O2SAT 90–100; BMI 45.9
[2025-04-21 00:25] LABS: Glucose, Whole Blood 164 mg/dL (60-115)
[2025-04-21] MEDS: Potassium Phosphate/NS 15 MMOL/250 ML PLAST..BAG 62.5 MMOL IV ×2 (00:32→08:10)
[2025-04-21] MEDS: traZODone HCL 25 MG HALFTAB PO (02:10)
[2025-04-21 05:24] LABS: MANUAL DIFF FLAG NO
[2025-04-21 05:25] LABS: Hematocrit 39.4 % (42.0-52.0); Hemoglobin 13.5 g/dl (14.0-18.0); Imm Gran Abs Auto 0.01 X10*3/uL (0.00-0.03); Imm Gran Pct Auto 0.3 % (0.0-0.4); Lymphocytes Absolute Auto 0.5 X10*3/uL (1.2-4.9); Mean Corpuscular HGB Conc 34.3 g/dl (31.0-36.0); Mean Corpuscular Hemoglobin 36.9 pg (27.0-33.0); Mean Corpuscular Volume 107.7 fL (80.0-98.0); NRBC Abs Auto 0.000 X10*3/uL (0.0-0.012); NRBC Pct Auto 0.0 /100WBC (0.0-0.2); Red Blood Count 3.66 X10*6/uL (4.60-5.80); White Blood Count 3.2 X10*3/uL (4.8-10.8)
[2025-04-21 05:26] LABS: Platelet Count 38 X10*3/uL (160-400)
[2025-04-21 05:27] LABS: VBG HCO3 21 mmol/L (22-26); VBG O2 % Saturation 85.0 %
[2025-04-21 05:34] LABS: Venous Blood Gas Refer to POC result
[2025-04-21 05:45] LABS: Albumin Level 3.5 g/dL (3.5-5.0); Anion Gap 15 (12-20); Blood Urea Nitrogen 20 mg/dL (9-16); Calcium 8.0 mg/dL (8.4-10.2); Carbon Dioxide 20 mmol/L (22-29); Chloride 104 mmol/L (96-108); Creatinine Clr Calc Pharmacy 129.3; Estimated Glomerular Filt Rate > 60; Magnesium 1.5 mg/dL (1.6-2.6); Potassium 3.9 mmol/L (3.3-5.1); Sodium 135 mmol/L (135-145)
--- NOTE | 2025-04-21 06:37 | PC.NURSE ---
Pt remains in icu for monitoring. aox4. able to make needs known. SR on tele. Start of shift pt titrated off insulin drip and IVF per provider, please see MAR for details re times. Pt on 2LNC overnight for sleep. VSS overnight. Voiding in the urinal w/ stand by assist. Safety needs being met. Care ongoing.
[2025-04-21 07:12] LABS: Glucose, Whole Blood 118 mg/dL (60-115)
[2025-04-21] MEDS: 0.9 % Sodium Chloride Flush 3 ML SYRINGE IVFLUSH ×3 (08:07→21:33)
[2025-04-21] MEDS: Magnesium Sulfate/H2O 2 GM/50 ML PIGGYBACK IV (08:10)
--- NOTE | 2025-04-21 09:55 | MHC.CM.PN ---
Pt to transfer to [facility] floor today; BG controlled, off insulin gtt: D/C plan: return to home - may need transporation assist.
--- NOTE | 2025-04-21 10:22 | P.PNCC_ITS ---
Subjective Subjective Date of Service: 04/21/25 Interval History: 55-year-old gentleman with underlying diabetes mellitus, sarcoidosis, hypertension, BPH admitted on 04/20/2025 with euglycemic ketoacidosis requiring insulin drip. No events overnight. Titrated off insulin drip. Critical Care Time (minutes): 0 Physical Exam 2 Vital Signs: Vital Signs: Last Vital Signs Temp 97.2 F 04/21/25 08:00 Pulse 91 04/21/25 09:00 Resp 21 H 04/21/25 09:00 BP 104/38 L 04/21/25 09:00 Pulse Ox 92 04/21/25 09:00 O2 Del Method Room Air 04/21/25 09:00 BMI result Body Mass Index 45.9 Const: General: no acute distress, alert and awake Eyes: Sclerae: sclerae normal EOM: EOMs intact bilaterally Neck: Neck: Yes no lymphadenopathy, Yes trachea midline and Yes supple Resp: Effort & Inspection: normal respiratory effort and no respiratory distress Auscultation: clear to auscultation bilaterally Cardio: Rate: tachycardic Rhythm: regular rhythm Heart sounds: no gallops, no murmurs and no rubs GI: Palpation (GI): Soft to palpation and Other GI palpation findings present ( Nontender) Auscultation: normal bowel sounds Extrem: General: Yes no pedal edema, No clubbing and No cyanosis Objective Data Labs 04/21/25 05:15 04/21/25 05:15 Labs: Laboratory Results - last 24 hr 04/19/25 04/20/25 04/20/25 19:40 10:46 11:16 WBC 3.9 L RBC 3.93 L Hgb 14.7 Hct 43.4 MCV 110.4 H MCH 37.4 H MCHC 33.9 RDW 14.2 Plt Count 54 L D MPV 9.5 Immature Gran % (Auto) 0.3 Neut % (Auto) 75.3 H Lymph % (Auto) 7.7 L [place] % (Auto) 15.4 H Eos % (Auto) 0.8 Baso % (Auto) 0.5 Lymph # (Auto) 0.3 L [place] # (Auto) 0.6 Eos # (Auto) 0.0 Baso # (Auto) 0.0 Abs Immat Gran (auto) 0.01 Absolute Neuts (auto) 2.9 Absolute Nucleated RBC 0.000 Nucleated RBC % (auto) 0.0 Smear Path Review SEE NOTE VBG pH VBG pCO2 VBG pO2 VBG HCO3 VBG O2 Saturation VBG Base Excess Sodium 137 Potassium 3.8 Chloride 106 Carbon Dioxide 17 L Anion Gap 18 BUN 20 H Creatinine 1.14 Estim Creat Clear Calc 105.4 Estimated GFR > 60 POC Glucose 130 H Random Glucose 140 H Calcium 7.9 L Phosphorus 0.8 L* Magnesium 1.7 Total Bilirubin 2.9 H AST 111 H ALT 86 H Alkaline Phosphatase 120 H Total Protein 6.6 Albumin 3.8 04/20/25 04/20/25 04/20/25 11:34 13:17 14:06 WBC RBC Hgb Hct MCV MCH MCHC RDW Plt Count MPV Immature Gran % (Auto) Neut % (Auto) Lymph % (Auto) [place] % (Auto) Eos % (Auto) Baso % (Auto) Lymph # (Auto) [place] # (Auto) Eos # (Auto) Baso # (Auto) Abs Immat Gran (auto) Absolute Neuts (auto) Absolute Nucleated RBC Nucleated RBC % (auto) Smear Path Review VBG pH VBG pCO2 VBG pO2 VBG HCO3 VBG O2 Saturation VBG Base Excess Sodium Potassium Chloride Carbon Dioxide Anion Gap BUN Creatinine Estim Creat Clear Calc Estimated GFR POC Glucose 140 H 151 H 164 H Random Glucose Calcium Phosphorus Magnesium Total Bilirubin AST ALT Alkaline Phosphatase Total Protein Albumin 04/20/25 04/20/25 04/20/25 15:58 18:17 20:02 WBC RBC Hgb Hct MCV MCH MCHC RDW Plt Count MPV Immature Gran % (Auto) Neut % (Auto) Lymph % (Auto) [place] % (Auto) Eos % (Auto) Baso % (Auto) Lymph # (Auto) [place] # (Auto) Eos # (Auto) Baso # (Auto) Abs Immat Gran (auto) Absolute Neuts (auto) Absolute Nucleated RBC Nucleated RBC % (auto) Smear Path Review VBG pH VBG pCO2 VBG pO2 VBG HCO3 VBG O2 Saturation VBG Base Excess Sodium 135 Potassium 4.1 Chloride 104 Carbon Dioxide 20 L Anion Gap 15 BUN 21 H Creatinine 1.03 Estim Creat Clear Calc 116.7 Estimated GFR > 60 POC Glucose 172 H 167 H Random Glucose 153 H Calcium 8.0 L Phosphorus Magnesium Total Bilirubin AST ALT Alkaline Phosphatase Total Protein Albumin 12/04/20/25 04/21/25 23:21 23:59 05:15 WBC 3.2 L RBC 3.66 L Hgb 13.5 L Hct 39.4 L MCV 107.7 H MCH 36.9 H MCHC 34.3 RDW 14.4 Plt Count 38 L D MPV 9.8 Immature Gran % (Auto) 0.3 Neut % (Auto) 69.7 Lymph % (Auto) 14.1 L [place] % (Auto) 11.9 H Eos % (Auto) 3.4 Baso % (Auto) 0.6 Lymph # (Auto) 0.5 L [place] # (Auto) 0.4 Eos # (Auto) 0.1 Baso # (Auto) 0.0 Abs Immat Gran (auto) 0.01 Absolute Neuts (auto) 2.2 Absolute Nucleated RBC 0.000 Nucleated RBC % (auto) 0.0 Smear Path Review VBG pH VBG pCO2 VBG pO2 VBG HCO3 VBG O2 Saturation VBG Base Excess Sodium 134 L 135 Potassium 4.0 3.9 Chloride 103 104 Carbon Dioxide 20 L 20 L Anion Gap 15 15 BUN 23 H 20 H Creatinine 1.01 0.93 Estim Creat Clear Calc 119.0 129.3 Estimated GFR > 60 > 60 POC Glucose 164 H Random Glucose 149 H 115 Calcium 8.1 L 8.0 L Phosphorus 1.7 L 1.9 L Magnesium 1.6 1.5 L Total Bilirubin AST ALT Alkaline Phosphatase Total Protein Albumin 3.5 04/21/25 04/21/25 05:23 07:09 WBC RBC Hgb Hct MCV MCH MCHC RDW Plt Count MPV Immature Gran % (Auto) Neut % (Auto) Lymph % (Auto) [place] % (Auto) Eos % (Auto) Baso % (Auto) Lymph # (Auto) [place] # (Auto) Eos # (Auto) Baso # (Auto) Abs Immat Gran (auto) Absolute Neuts (auto) Absolute Nucleated RBC Nucleated RBC % (auto) Smear Path Review VBG pH 7.42 VBG pCO2 32 VBG pO2 51 VBG HCO3 21 L VBG O2 Saturation 85.0 VBG Base Excess -2.1 Sodium Potassium Chloride Carbon Dioxide Anion Gap BUN Creatinine Estim Creat Clear Calc Estimated GFR POC Glucose 118 H Random Glucose Calcium Phosphorus Magnesium Total Bilirubin AST ALT Alkaline Phosphatase Total Protein Albumin Progress Note: A&P Assessment and plan (1) Thrombocytopenia: Status: Acute (2) DKA (diabetic ketoacidosis): Status: Acute (3) Type 2 diabetes mellitus: Status: Acute (4) Sarcoidosis: Status: Acute Plan Assessment: 55-year-old gentleman admitted with euglycemic ketoacidosis requiring insulin drip. Plan: Neuro: No acute issues. Cardiac: No acute issues. Pulmonary: No acute issues. Renal: No acute issues. Endo: Diabetes mellitus with euglycemic ketoacidosis, now titrated off insulin drip to subcutaneous insulin. GI: No acute issues. ID: No acute issues Heme/Onc: Thrombocytopenia, unclear etiology, Lovenox held. Psych: No acute issues. Miscellaneous: No acute issues. Prophylaxis: Pneumatic compression Diet: Regular Quality Stroke Does the patient have a stroke diagnosis?: No VTE Prior VTE?: No VTE Risk Level:: Medical - moderate - high VTE Device Contraindication: Treatment Not Indicated VTE Drug Contraindication: N/A - Med Ordered
--- NOTE | 2025-04-21 11:05 | PC.NURSE ---
Assume Care @ 0700? ?A&O x4. On RA, SR on tele.Voiding in urinal. Peripheral IVs. Plan: Transfer to Med surg. No longer requiring ICU-level care.
[2025-04-21 11:17] LABS: Glucose, Whole Blood 208 mg/dL (60-115)
[2025-04-21 12:27] LABS: Glucose, Whole Blood 178 mg/dL (60-115)
[2025-04-21 13:28] LABS: HBsAGNum1 0.19 S/CO (0.00-0.99); Hepatitis B Surface Antigen Negative (Negative)
--- NOTE | 2025-04-21 14:34 | HO.SKINPHOTO ---
Bruise to left heel noted, pt is unclear of cause.
--- NOTE | 2025-04-21 14:36 | PC.NURSE ---
Pt arrived to unit from ICU a&ox3-4 able to make needs known. Pt was able to ambulate from wheelchair to bed, noted to be unsteady fall risk interventions in place. Wallet with ghosh and check stored in security, see belongings list for details. Call marin in reach, safety measures in place.
[2025-04-21 16:07] LABS: Glucose, Whole Blood 158 mg/dL (60-115)
[2025-04-21 20:08] LABS: Glucose, Whole Blood 177 mg/dL (60-115)
[2025-04-22 00:24] LABS: A. Phagocytphilium DNA,RT-PCR NOT DETECTED (NOT DETECTED); Babesia Microti DNA, RT-PCR NOT DETECTED (NOT DETECTED); Borrelia Miyamotoi,DNA RT-PCR NOT DETECTED (NOT DETECTED); E.Chaffeensis DNA RT-PCR NOT DETECTED (NOT DETECTED); Lyme(Borrelia ssp)DNA RT-PCR NOT DETECTED (NOT DETECTED)
[2025-04-22 03:19] VITALS: BP 145/77; PULSE 102; RESP 18; TEMP 36; O2SAT 94
[2025-04-22 06:00] VITALS: BMI 49.2
[2025-04-22 06:46] LABS: MANUAL DIFF FLAG NO
[2025-04-22 06:50] LABS: Hematocrit 37.2 % (42.0-52.0); Hemoglobin 13.0 g/dl (14.0-18.0); Imm Gran Abs Auto 0.02 X10*3/uL (0.00-0.03); Imm Gran Pct Auto 0.7 % (0.0-0.4); Lymphocytes Absolute Auto 0.4 X10*3/uL (1.2-4.9); Mean Corpuscular HGB Conc 34.9 g/dl (31.0-36.0); Mean Corpuscular Hemoglobin 37.7 pg (27.0-33.0); Mean Corpuscular Volume 107.8 fL (80.0-98.0); NRBC Abs Auto 0.000 X10*3/uL (0.0-0.012); NRBC Pct Auto 0.0 /100WBC (0.0-0.2); Platelet Count 33 X10*3/uL (160-400); Red Blood Count 3.45 X10*6/uL (4.60-5.80); White Blood Count 2.8 X10*3/uL (4.8-10.8)
[2025-04-22 06:56] VITALS: BP 170/72; PULSE 101; RESP 17; TEMP 36.6; O2SAT 95
[2025-04-22 07:10] LABS: Anion Gap 12 (12-20); Blood Urea Nitrogen 17 mg/dL (9-16); Calcium 8.2 mg/dL (8.4-10.2); Carbon Dioxide 23 mmol/L (22-29); Chloride 104 mmol/L (96-108); Creatinine Clr Calc Pharmacy 192.4; Estimated Glomerular Filt Rate > 60; Magnesium 1.7 mg/dL (1.6-2.6); Potassium 3.7 mmol/L (3.3-5.1); Sodium 135 mmol/L (135-145)
[2025-04-22 07:14] LABS: Glucose, Whole Blood 139 mg/dL (60-115)
[2025-04-22] MEDS: 0.9 % Sodium Chloride Flush 3 ML SYRINGE IVFLUSH ×3 (08:05→20:11)
[2025-04-22 09:26] VITALS: BP 144/67; PULSE 102; RESP 16; O2SAT 94
--- NOTE | 2025-04-22 11:06 | HO.WOUND ---
Wound Consult: Initial 55 yr old male admitted to [facility] on 04/20/25 - See progress notes and H&P for detailed history. Wound consult placed for bilateral axilla. Patient agreeable to assessment and photo documentation. Patient reports daily shower and using powder at home in skin folds. Complains of itching and burning to axilla and perineum. Right axilla groin/perineum/scrotum not pictured - also with moist reddened skin in the setting of moisture trapping in folds Etiology: MASD/ intertriginous dermatitis Wound Bed: moist red intact Drainage / Odor: no drainage Edges: ? irregular -satellite lesions Dora wound: ? No Induration, Fluctuance or Warmth noted Pain: itching Goals of Treatment: ? antifungal powder in place - interdry may be used and barrier cream may be used to groin/perineum Left lateral heel- intact bruise - irregular edges, not over pressure point - patient cannot recall injury but reports increased bruising to arms Recommendations: 1. Turn and Reposition every 2 hours and as needed for patient comfort. Use pillows or wedges to support off loading positions. 2. Off Load all bony prominences with use of pillows and heel boots if needed. Apply Preventative foams where needed. 3. Use waffle cushion when up to chair, limit sitting times to 1-2 hours 3. Monitor for incontinence and moisture control, use barrier creams when needed for prevention and treatment. 4. Provide adequate and supplemental nutrition. 5. Order or Continue low air loss mattress. 6. When applicable maintain blood glucose levels per Providers order. Bilateral axilla, groin and perineum: assess all skin folds daily. routine gentle cleansing of skin folds, avoid scrubbing, pat area dry. wear lightweight, loose fitting clothing to promote air circulation. avoid placing products in skin folds that hold moisture against the skin. apply antifungal medication per provider orders, use only a light dusting to prevent caking. insert interdry ag into skin folds leaving 2-3 exposed to promote moisture wicking and evaporation. May use barrier cream or triad paste to groin/perineum after antifungal powder. Re-consult wound care Nurse for wound deterioration or wound changes.
--- NOTE | 2025-04-22 11:11 | HO.WOUND ---
Wound Consult: Initial 55 yr old male admitted to [facility] on 04/20/25 - See progress notes and H&P for detailed history. Wound consult placed for bilateral axilla. Patient agreeable to assessment and photo documentation. Patient reports daily shower and using powder at home in skin folds. Complains of itching and burning to axilla and perineum. Right axilla groin/perineum/scrotum not pictured - also with moist reddened skin in the setting of moisture trapping in folds Etiology: MASD/ intertriginous dermatitis Wound Bed: moist red intact Drainage / Odor: no drainage Edges: ? irregular -satellite lesions Dora wound: ? No Induration, Fluctuance or Warmth noted Pain: itching Goals of Treatment: ? antifungal powder in place - interdry may be used and barrier cream may be used to groin/perineum Left lateral heel- intact bruise - irregular edges, not over pressure point - patient cannot recall injury but reports increased bruising to arms likely in the setting of low platelet count Recommendations: 1. Turn and Reposition every 2 hours and as needed for patient comfort. Use pillows or wedges to support off loading positions. 2. Off Load all bony prominences with use of pillows and heel boots if needed. Apply Preventative foams where needed. 3. Use waffle cushion when up to chair, limit sitting times to 1-2 hours 3. Monitor for incontinence and moisture control, use barrier creams when needed for prevention and treatment. 4. Provide adequate and supplemental nutrition. 5. Order or Continue low air loss mattress. 6. When applicable maintain blood glucose levels per Providers order. Bilateral axilla, groin and perineum: assess all skin folds daily. routine gentle cleansing of skin folds, avoid scrubbing, pat area dry. wear lightweight, loose fitting clothing to promote air circulation. avoid placing products in skin folds that hold moisture against the skin. apply antifungal medication per provider orders, use only a light dusting to prevent caking. insert interdry ag into skin folds leaving 2-3 exposed to promote moisture wicking and evaporation. May use barrier cream or triad paste to groin/perineum after antifungal powder. Re-consult wound care Nurse for wound deterioration or wound changes.
[2025-04-22 11:28] LABS: Glucose, Whole Blood 179 mg/dL (60-115)
--- NOTE | 2025-04-22 12:02 | P.PNIM_ITS ---
Subjective Subjective Date of Service: 04/22/25 Interval History: 55-year-old gentleman with underlying diabetes mellitus, sarcoidosis, hypertension, BPH admitted on 04/20/2025 with euglycemic ketoacidosis requiring insulin drip. transsfer out of ICU on 04/21, has pancytopenia with worsening plat count drop Physical Exam 2 Vital Signs: Vital Signs: Last Vital Signs Temp 98 F 04/22/25 06:56 Pulse 102 H 04/22/25 09:26 Resp 16 04/22/25 09:26 BP 144/67 H 04/22/25 09:26 Pulse Ox 94 04/22/25 09:26 O2 Del Method Room Air 04/22/25 09:26 BMI result Body Mass Index 49.2 Const: Other: General: AO X 3, no acute distress Resp: CTA bilateral CVS: S1,S2,RRR GI: +BS, NT, no distention Skin: No rash Neuro: motor grossly intact Psych: appropriate affect Objective Data Active Medications Atorvastatin Calcium (Atorvastatin Calcium 40 Mg Tablet) 40 mg PO DAILY [facility] Last Admin: 04/22/25 08:04 Dose: 40 mg Documented By: LC Dextrose (Dextrose 50 % 25 Gm/50 Ml Syringe) 25 gm IVPUSH Q30M PRN PRN Reason: BG < 70 Insulin Human Lispro (Insulin Lispro 100 Unit/Ml 3 Ml Vial) 0 unit SUBCUT QIDACHS [facility]; Protocol Last Admin: 04/22/25 11:38 Dose: 2 unit Documented By: LC Losartan Potassium (Losartan Potassium 25 Mg Tablet) 25 mg PO DAILY [facility]; Protocol Last Admin: 04/22/25 08:04 Dose: 25 mg Documented By: LC Melatonin (Melatonin 3 Mg Tablet) 6 mg PO BEDTIME PRN PRN Reason: Insomnia Nystatin (Nystatin Powder 15 Gm Bottle) 1 appl TOPICAL BID [facility] Last Admin: 04/22/25 10:59 Dose: 1 appl Documented By: LC Ondansetron HCl (Ondansetron Hcl 4 Mg/2 Ml Vial) 4 mg IVPUSH Q6H PRN PRN Reason: Nausea and Vomiting Sodium Chloride (0.9 % Sodium Chloride Flush 3 Ml Syringe) 3 ml IVFLUSH QSHIFT [facility] Last Admin: 04/22/25 08:05 Dose: 3 ml Documented By: LC Trazodone HCl (Trazodone Hcl 25 Mg Halftab) 25 mg PO BEDTIME PRN PRN Reason: Insomnia Last Admin: 04/21/25 02:10 Dose: 25 mg Documented By: JUNE Labs 04/22/25 06:12 04/22/25 06:12 Labs: Laboratory Results - last 24 hr 04/19/25 04/21/25 04/21/25 22:39 12:22 15:57 MCV MCH MCHC RDW Plt Count MPV Immature Gran % (Auto) Neut % (Auto) Lymph % (Auto) [place] % (Auto) Eos % (Auto) Baso % (Auto) Lymph # (Auto) [place] # (Auto) Eos # (Auto) Baso # (Auto) Abs Immat Gran (auto) Absolute Neuts (auto) Absolute Nucleated RBC Nucleated RBC % (auto) Anion Gap Estim Creat Clear Calc Estimated GFR POC Glucose 178 H 158 H Random Glucose Calcium Phosphorus Magnesium A.phagocytophil DNA PCR NOT DETECTED Babesia microti DNA PCR NOT DETECTED Borrelia sp DNA (PCR) NOT DETECTED Borrelia miyamotoi (PCR) NOT DETECTED E.chaffeensis DNA (PCR) NOT DETECTED Hep Bs Antigen Negative Tick-borne Disease PCR SEE NOTE 04/21/25 04/22/25 04/22/25 20:04 06:12 06:54 MCV 107.8 H MCH 37.7 H MCHC 34.9 RDW 14.2 Plt Count 33 L MPV 10.6 Immature Gran % (Auto) 0.7 H Neut % (Auto) 67.3 Lymph % (Auto) 14.0 L [place] % (Auto) 12.2 H Eos % (Auto) 4.7 H Baso % (Auto) 1.1 Lymph # (Auto) 0.4 L [place] # (Auto) 0.3 Eos # (Auto) 0.1 Baso # (Auto) 0.0 Abs Immat Gran (auto) 0.02 Absolute Neuts (auto) 1.9 L Absolute Nucleated RBC 0.000 Nucleated RBC % (auto) 0.0 Anion Gap 12 Estim Creat Clear Calc 192.4 Estimated GFR > 60 POC Glucose 177 H 139 H Random Glucose 134 H Calcium 8.2 L Phosphorus 1.7 L Magnesium 1.7 A.phagocytophil DNA PCR Babesia microti DNA PCR Borrelia sp DNA (PCR) Borrelia miyamotoi (PCR) E.chaffeensis DNA (PCR) Hep Bs Antigen Tick-borne Disease PCR 04/22/25 11:20 MCV MCH MCHC RDW Plt Count MPV Immature Gran % (Auto) Neut % (Auto) Lymph % (Auto) [place] % (Auto) Eos % (Auto) Baso % (Auto) Lymph # (Auto) [place] # (Auto) Eos # (Auto) Baso # (Auto) Abs Immat Gran (auto) Absolute Neuts (auto) Absolute Nucleated RBC Nucleated RBC % (auto) Anion Gap Estim Creat Clear Calc Estimated GFR POC Glucose 179 H Random Glucose Calcium Phosphorus Magnesium A.phagocytophil DNA PCR Babesia microti DNA PCR Borrelia sp DNA (PCR) Borrelia miyamotoi (PCR) E.chaffeensis DNA (PCR) Hep Bs Antigen Tick-borne Disease PCR Assessment and Plan (1) Type 2 diabetes mellitus: Status: Acute (2) DKA (diabetic ketoacidosis): Status: Acute Plan 55-year-old gentleman admitted with euglycemic ketoacidosis requiring insulin drip. Diabetes mellitus with euglycemic ketoacidosis, on lantus and metformin at home, not aware of GLP1 use required insulin drip in icu, DKA resolved, now on SSI check A1C and consider restarting Lantus or Metformin Pancytopenia with marked thrombocytopenia, ? related to sarcoid thrombocytopenia may have been worsened by lovenox which is stopped HTN Losartan HLD statin Morbid obesity weight loss advised Miscellaneous: No acute issues. Prophylaxis: Pneumatic compression, low platlets PT eval; Quality Stroke Does the patient have a stroke diagnosis?: No VTE Prior VTE?: No VTE Risk Level:: Medical - moderate - high VTE Device Contraindication: Treatment Not Indicated VTE Drug Contraindication: N/A - Med Ordered
--- NOTE | 2025-04-22 13:40 | PM.HEMONCCN ---
Subjective - Subjective Chief complaint: Nausea/emesis Patient: new to practice Consult date: 04/22/25 Primary Care Provider: Betty Bowman MD Counselor Camp Utilized?: No - Solomon Islander Speaking HPI - Consult Narrative Reason for consult: Thrombocytopenia Narrative: Librado Rowell is a 55 year old male with past medical history significant for diabetes mellitus, BPH, hypertension who presented to ED with complaints of progressive nausea and multiple episodes of vomiting. He was admitted in February at [facility] for similar complaints. He was admitted for euglycemic ketoacidosis, he was treated with insulin drip in ICU. He is noted to have pancytopenia with platelets of 74K on admission. This gradually declined to 33 K today. He also has mild leukopenia with a WBC count of 2.8 and hemoglobin of 13 gram/dL. He has macrocytosis. Patient is aware of thrombocytopenia, he was told of this on his previous admission as well. He denies any bruising or bleeding. He denies alcohol use, he smokes marijuana, not nicotine. Review of Systems - Constitutional Reports as per [facility] Medical History: Medical History (Last Reviewed 04/22/25 @ 13:20 by Gali Jones PT) Bilateral primary osteoarthritis of knee Hyperlipidemia Hypertension Microalbuminuric diabetic nephropathy Morbid obesity Onychomycosis Sarcoidosis Staghorn renal calculus Type 2 diabetes mellitus Family History: Family History (Last Reviewed 06/03/23 @ 16:56 by Clarissa Aponte MA) Father CVA (cerebral vascular accident) Social History: Social History (Last Reviewed 06/03/23 @ 16:56 by Clarissa Aponte MA) Living Situation History: Household Members: None Household Members Other:: lives alone Housing: House Do you presently have visiting nurse or other home services: No Tobacco History: Patient Tobacco Use Status: Never used Tobacco Occupation Assessmet: service: No Current occupational status: retired Current occupation: Formerly worked at [employer] Medications and Allergies Current Medications: Current Medications Atorvastatin Calcium (Atorvastatin Calcium 40 Mg Tablet) 40 mg PO DAILY [facility] Last Admin: 04/22/25 08:04 Dose: 40 mg Dextrose (Dextrose 50 % 25 Gm/50 Ml Syringe) 25 gm IVPUSH Q30M PRN PRN Reason: BG < 70 Insulin Human Lispro (Insulin Lispro 100 Unit/Ml 3 Ml Vial) 0 unit SUBCUT QIDACHS [facility]; Protocol Last Admin: 04/22/25 11:38 Dose: 2 unit Losartan Potassium (Losartan Potassium 25 Mg Tablet) 25 mg PO DAILY [facility]; Protocol Last Admin: 04/22/25 08:04 Dose: 25 mg Melatonin (Melatonin 3 Mg Tablet) 6 mg PO BEDTIME PRN PRN Reason: Insomnia Nystatin (Nystatin Powder 15 Gm Bottle) 1 appl TOPICAL BID [facility] Last Admin: 04/22/25 10:59 Dose: 1 appl Ondansetron HCl (Ondansetron Hcl 4 Mg/2 Ml Vial) 4 mg IVPUSH Q6H PRN PRN Reason: Nausea and Vomiting Sodium Chloride (0.9 % Sodium Chloride Flush 3 Ml Syringe) 3 ml IVFLUSH QSHIFT [facility] Last Admin: 04/22/25 08:05 Dose: 3 ml Trazodone HCl (Trazodone Hcl 25 Mg Halftab) 25 mg PO BEDTIME PRN PRN Reason: Insomnia Last Admin: 04/21/25 02:10 Dose: 25 mg Home Medications ?Medication ?Instructions ?Recorded ?Confirmed ?Type metformin 500 mg tablet 500 mg PO BID 02/19/22 04/20/25 History losartan 25 mg tablet 25 mg PO DAILY 06/03/23 04/20/25 History insulin aspart U-100 100 unit/mL 6 - 8 unit subcut TIDWM 04/20/25 04/20/25 History (3 mL) subcutaneous pen melatonin 12 mg tablet 12 mg PO BEDTIME PRN Insomnia 04/20/25 04/20/25 History Allergies Allergy/AdvReac Type Severity Reaction Status Date / Time adhesive tape AdvReac Mild Unknown Verified 04/19/25 19:13 Physical Exam Vital signs: Vital Signs Temp 98 F 04/22/25 06:56 Pulse 102 H 04/22/25 09:26 Resp 16 04/22/25 09:26 BP 144/67 H 04/22/25 09:26 Pulse Ox 94 04/22/25 09:26 O2 Del Method Room Air 04/22/25 09:26 Intake & Output 04/21/25 04/22/25 04/22/25 18:59 06:59 18:59 Intake Total 540.000 / 1100.000 560 / 1100.000 Balance 540.000 / 1100.000 560 / 1100.000 Intake: Intake, Oral Amount 240 / 800 560 / 800 Intake, IV Amount 300.000 / 300.000 Magnesium Sulfate/H2O 2 gm In 50 / 50 50 ml @ 25 mls/hr IV ONCE ONE Rx#:[id number] Potassium Phosphate/NS 15 mmol 250.000 / 250.000 In 250 ml @ 62.5 mls/hr IV ONCE ONE Rx#:[id number] Other: Meal Refused No NPO No Lunch % Eaten 100% Dinner % Eaten 100% Eating (Feeding) Ability Independent Independent Number of Unmeasured Voids 3 Number of Bowel Movements 0 Urine Bathroom Urine Color Yellow Weight 155.4 kg Weight 155.4 kg - Constitutional Present: no acute distress, morbidly obese - Routine HEENT Exam Eye: Present: EOMI - Routine Neck Exam Present: supple - Routine Respiratory Exam Present: decreased breath sounds - Routine Cardiovascular Exam Cardiovascular: Present: S1, S2 Hem/Onc Consult Result - Labs CBC & Chem 7: 04/22/25 06:12 04/22/25 06:12 Labs: Short CBC 04/22/25 Range/Units 06:12 WBC 2.8 L (4.8-10.8) X10*3/uL Hgb 13.0 L (14.0-18.0) g/dl Hct 37.2 L (42.0-52.0) % Plt Count 33 L (160-400) X10*3/uL [facility] 04/22/25 06:12 Sodium 135 Potassium 3.7 Chloride 104 Carbon Dioxide 23 BUN 17 H Creatinine 0.65 Calcium 8.2 L Assessment and Plan Patient Active problem list reviewed?: Yes (1) Thrombocytopenia Status: Acute Assessment and plan: 1. This is a 55-year-old male with diabetes mellitus who is admitted for euglycemic ketoacidosis and found to have gradual worsening of chronic thrombocytopenia. Patient has been told of this in the past. He has liver disease, severe hepatic steatosis noted on imaging on 04/20/2025. He has macrocytosis with pancytopenia. Differential diagnosis could be liver disease, myelodysplastic syndrome, vitamin B12/folate deficiency, lymphoma, plasma cell dyscrasia. His coagulation tests and kidney functions are normal. Hematological profile does not suggest DIC or myelophthisic process. Trend in platelet count decline is also not consistent with heparin induced thrombocytopenia. I would however recommend discontinuation of heparin, monitor CBC daily. Further hematological tests have been submitted. Thank you for the consultation. He was advised to follow up with Hematology upon discharge. - Time Spent With Patient Time Spent with Patient (in minutes): 20 Additional Coding: - Additional E/M codes Complex E/M visit Add On: CPT G2211
[2025-04-22 14:46] LABS: Reticulocytes Absolute 0.058 X10*6/uL (0.026-0.095)
[2025-04-22 14:51] LABS: Alanine Aminotransferase 131 U/L (0-40); Albumin Level 3.1 g/dL (3.5-5.0); Alkaline Phosphatase 138 U/L (39-117); Aspartate Amino Transferase 415 U/L (5-37); Total Protein 5.6 g/dL (6.5-8.0)
[2025-04-22 15:29] VITALS: BP 121/62; PULSE 93; RESP 18; TEMP 36.7; O2SAT 96
[2025-04-22 15:57] LABS: Folate < 2.2 ng/mL (> or = 4.0); Vitamin B12 894 pg/mL (200-900)
[2025-04-22 16:05] LABS: Glucose, Whole Blood 186 mg/dL (60-115)
--- NOTE | 2025-04-22 16:25 | MHC.CM.PN ---
PT NOT MEDICALLY CLEARED DCP: HOME VIA LYFT VS SHUTTLE
[2025-04-22 19:21] VITALS: BP 148/82; PULSE 98; RESP 18; TEMP 36.9; O2SAT 96
[2025-04-22 20:05] LABS: Glucose, Whole Blood 248 mg/dL (60-115)
[2025-04-23] MEDS: traZODone HCL 25 MG HALFTAB PO (02:15)
[2025-04-23 03:58] VITALS: PULSE 96; RESP 18; TEMP 36.3; O2SAT 96
[2025-04-23 06:59] VITALS: BP 109/58; PULSE 98; RESP 17; TEMP 36.6; O2SAT 97
[2025-04-23 07:18] LABS: Glucose, Whole Blood 162 mg/dL (60-115)
[2025-04-23 09:10] LABS: Hematocrit 42.0 % (42.0-52.0); Hemoglobin 14.6 g/dl (14.0-18.0); Mean Corpuscular HGB Conc 34.8 g/dl (31.0-36.0); Mean Corpuscular Hemoglobin 37.0 pg (27.0-33.0); Mean Corpuscular Volume 106.3 fL (80.0-98.0); NRBC Abs Auto 0.000 X10*3/uL (0.0-0.012); NRBC Pct Auto 0.0 /100WBC (0.0-0.2); Red Blood Count 3.95 X10*6/uL (4.60-5.80); White Blood Count 4.2 X10*3/uL (4.8-10.8)
[2025-04-23 09:11] LABS: Platelet Count 62 X10*3/uL (160-400)
[2025-04-23 09:30] LABS: Anion Gap 15 (12-20); Blood Urea Nitrogen 14 mg/dL (9-16); Calcium 9.0 mg/dL (8.4-10.2); Carbon Dioxide 26 mmol/L (22-29); Chloride 100 mmol/L (96-108); Creatinine Clr Calc Pharmacy 152.5; Estimated Glomerular Filt Rate > 60; Potassium 3.7 mmol/L (3.3-5.1); Sodium 137 mmol/L (135-145)
--- NOTE | 2025-04-23 10:31 | PM.DS ---
DS: Providers Provider Date of admission: 04/20/25 06:19 Date of discharge: 04/23/25 Primary care physician: Betty Bowman MD Consults: 04/22/25 00:22 Consult to Wound Care Routine Consulting Provider: [facility] Reason for consultation: redness to B/L axilla's: ?MASD or fungal? 04/22/25 12:01 Consult to Hematology / Oncology Routine Consulting Provider: [facility] [place] [place]Hematology Reason for consultation: Pancytopenia Has provider been notified: No DS: Diagnosis Discharge Diagnosis (1) Thrombocytopenia: Status: Acute DS: Summary Hospital Course Hospital Course: Admission HPI Chief Complaint: Nausea and vomiting ?The patient is a 55-year-old male with past medical history of diabetes mellitus, hypertension, and BPH who presented to the emergency department with 1?2?days of progressive nausea and multiple episodes of non-bloody, non-bilious vomiting. Patient reports had similar symptoms in February, and was admitted at [facility] for euglycemic DKA. ?Patient reports he only takes a ?white pill? for diabetes and regular insulin.? Per chart review [facility] discharge, patient is supposed to be on metformin, short and longacting inulin. Patient denies being on SGLT2 inhibitor, reports has not taken GLP1 in over 6 months. Patient also reports a mechanical fall on Friday when he ?missed the bed? after feeling dizzy. Patient denies LOC but states a TV fell on his head, patient states he was eventually able to stand without assistance after dizziness subsided. Since the fall patient reports he feels unsteady when bending over to get into bed and reports that his ?legs just don?t seem to work. Patient denies alcohol use. Laboratory data was significant for WBC of 4.3, platelets 74, serum bicarb 11, beta hydroxybutyrate 13. Venous gas:? 7./47/11 Urine positive for ketones IMAGING: Abdomen CT: Acute interstitial edematous pancreatitis. HEAD Ct:? No acute findings ED COURSE: Patient received 4.3 L bolus, Zofran 4 mg, and Reglan 10 mg.? And started on insulin drip. hospital course: He presented with Euglycemic DKA with nausea and vomiting. Laboratory data was significant for WBC of 4.3, platelets 74, serum bicarb 11, beta hydroxybutyrate 13. Venous gas:? 7.16/30/47/11 Urine positive for ketones. He was admitted to the ICU and treated with IVF, insulin drip and by the next day the ketoacidosis resolved and he was transfered to the medical floor. It is also of note that he has chronic thrombocytopenia and when he presented Plat was 74 and was given lovenox and dropped to 54, 38 , 33 and today 63. Lovenox was stopped once plat was trending down. at present, his bicab is 26, FBS is 162. He will be discharged to resume his usual meds of long, short acting insulin and Metformin. His nausea and vomiting was likely dur to gastroparesis Time Attestation Discharge Coordination Time (in mins): 40 Quality: Safe Use of Opioids Does Pt have an Active Cancer Diagnosis on the Problem List?: No Quality: Stroke Does the patient have a stroke diagnosis?: No Physical Exam Vital Signs: Vital Signs: Last Vital Signs Temp 97.9 F 04/23/25 06:59 Pulse 98 04/23/25 06:59 Resp 17 04/23/25 06:59 BP 109/58 L 04/23/25 06:59 Pulse Ox 97 04/23/25 06:59 O2 Del Method Room Air 04/23/25 06:59 BMI result Body Mass Index 49.2 DS: Data Data Completed and Pending Labs on day of discharge: Laboratory Results - last 24 hr 04/22/25 04/22/25 04/22/25 06:12 11:20 14:51 WBC RBC Hgb Hct MCV MCH MCHC RDW Plt Count MPV Absolute Nucleated RBC Nucleated RBC % (auto) Absolute Retic 0.058 Percent Retic 1.6 Immature Retic Fraction 11.9 Retic Hgb Equivalent 40.9 H Sodium Potassium Chloride Carbon Dioxide Anion Gap BUN Creatinine Estim Creat Clear Calc Estimated GFR POC Glucose 179 H Random Glucose Estimat Average Glucose 126 Hemoglobin A1c % 6.0 Calcium Total Bilirubin 4.7 H Direct Bilirubin 3.2 H AST 415 H ALT 131 H Alkaline Phosphatase 138 H Lactate Dehydrogenase 458 H Total Protein 5.6 L Albumin 3.1 L Vitamin B12 894 Folate < 2.2 L 04/22/25 04/22/25 04/23/25 15:54 19:59 07:01 WBC RBC Hgb Hct MCV MCH MCHC RDW Plt Count MPV Absolute Nucleated RBC Nucleated RBC % (auto) Absolute Retic Percent Retic Immature Retic Fraction Retic Hgb Equivalent Sodium Potassium Chloride Carbon Dioxide Anion Gap BUN Creatinine Estim Creat Clear Calc Estimated GFR POC Glucose 186 H 248 H 162 H Random Glucose Estimat Average Glucose Hemoglobin A1c % Calcium Total Bilirubin Direct Bilirubin AST ALT Alkaline Phosphatase Lactate Dehydrogenase Total Protein Albumin Vitamin B12 Folate 04/23/25 08:57 WBC 4.2 L RBC 3.95 L Hgb 14.6 Hct 42.0 MCV 106.3 H MCH 37.0 H MCHC 34.8 RDW 13.9 Plt Count 62 L D MPV 10.1 Absolute Nucleated RBC 0.000 Nucleated RBC % (auto) 0.0 Absolute Retic Percent Retic Immature Retic Fraction Retic Hgb Equivalent Sodium 137 Potassium 3.7 Chloride 100 Carbon Dioxide 26 Anion Gap 15 BUN 14 Creatinine 0.82 Estim Creat Clear Calc 152.5 Estimated GFR > 60 POC Glucose Random Glucose 200 H Estimat Average Glucose Hemoglobin A1c % Calcium 9.0 D Total Bilirubin Direct Bilirubin AST ALT Alkaline Phosphatase Lactate Dehydrogenase Total Protein Albumin Vitamin B12 Folate Discharge Plan Discharge Anticipated Discharge Date/Time: 04/23/25 10:50 Patient Disposition: Home, Self-Care Discharge Diagnosis: DKA, Gastroparesis, Referrals: Betty Bowman MD [Primary Care Provider, Internal Medicine] - 1 Week Discharge Medications: Continued rosuvastatin 10 mg tablet 10 mg PO DAILY Qty: 90 0RF insulin aspart U-100 100 unit/mL (3 mL) insulin pen 6 - 8 unit subcut TIDWM melatonin 12 mg Tablet 12 mg PO BEDTIME PRN (Reason: Insomnia) metformin 500 mg tablet 500 mg PO BID losartan 25 mg tablet 25 mg PO DAILY Discharge Orders: Discharge Order (Routine); Ordered 04/23/25 Ordered By: Wallace Martinez Diet: Diabetic diet Activity on Discharge: As tolerated Stand Alone Forms: Patient Portal Discharge page Print Language: Israeli Care Plan Goals: recovery from DKA, nausea and vomitting, gastgroparesis Health Concerns: DKA, gastroparesis, obesity Plan of Treatment: continue your usual medicaton, check your suargs as usual follow up with your Doctor, if you experience nausea and vomiting Assessment: see above
[2025-04-23 11:06] LABS: Glucose, Whole Blood 196 mg/dL (60-115)
--- NOTE | 2025-04-23 11:37 | W.MHC.F2F ---
Service Date Service Date: 04/23/25 Encounter Date of encounter: 04/23/25 Reasons for Services Signs and symptoms assessed: 45 Reason for chcf: medication treatment and teach disease management Homebound: Leaving the home is medically contraindicated at this time without the asist of a device and/or another person due th the listed conditions above and below. Reason homebound: weakness related to hospital stay Homebound supporting statement: homebound due weakness from hospitalization and complications of diabetes, fall and needs the assistance of another person Certification: Based on the above findings, I certify that this patient is confined to the home and needs intermittent chcf care, physical therapy and/or speech therapy, or continues to need occupational therapy. The patient is under my care, and I have initiated the establishment of the plan of care. The patient will be followed by a physician who will periodically review the plan of care. Time Spent With Patient Time: Total time managing care of this patient today ____ minutes.
[2025-04-23] MEDS: 0.9 % Sodium Chloride Flush 3 ML SYRINGE IVFLUSH (11:49)
== END 2025-04-23 13:03 | disposition home health service (06) | DRG 637 ==
LOC: HO.ED 04-20 06:19 → HO.EDOVER 04-20 06:22 → HO.ICU 04-20 06:26 → HO.S3 04-21 10:48
PROVIDERS: Hospitalist; Internal Medicine; Internal Medicine Pulmonary Disease; Physician Assistant; Admitting Provider Registered Nurse Community Health; Emergency Provider Emergency Medicine; PCP Internal Medicine; Visit Provider Internal Medicine
DX: E11.10 Type 2 diabetes mellitus with ketoacidosis without coma (principal); K85.80 Other acute pancreatitis without necrosis or infection; D61.818 Other pancytopenia; Z68.42 Body mass index [BMI] 45.0-49.9, adult; N40.0 Benign prostatic hyperplasia without lower urinary tract symptoms; E11.43 Type 2 diabetes mellitus with diabetic autonomic (poly)neuropathy; I10 Essential (primary) hypertension; E78.5 Hyperlipidemia, unspecified; E66.01 Morbid (severe) obesity due to excess calories; Z71.3 Dietary counseling and surveillance; D75.89 Other specified diseases of blood and blood-forming organs; D86.9 Sarcoidosis, unspecified; K31.84 Gastroparesis; Z20.822 Contact with and (suspected) exposure to COVID-19; Z79.4 Long term (current) use of insulin; Z79.84 Long term (current) use of oral hypoglycemic drugs; Z79.899 Other long term (current) drug therapy
CPT/HCPCS: 36415; 70450; 74177; 80048; 80053; 80076; 80143; 80307; 81001; 82010; 82040; 82248; 82607; 82746; 82784; 82803; 82947; 83036; 83615; 83690; 83735; 84100; 84478; 84484; 85025; 85027; 85045; 85610; 85730; 86334; 86704; 86706; 86709; 86803; 87340; 87468; 87469; 87478; 87484; 87637; 87798; 93005; 97162; 99285; J1650; J2405; J2765; J3475; Q9967

== ENCOUNTER → 2025-04-19 19:11 | Outpatient (BNV) | payer MEDICARE, MEDICAID, SELFPAY | PROVIDERS: Admitting Provider Registered Nurse Community Health; Emergency Provider Emergency Medicine; PCP Internal Medicine; Visit Provider Internal Medicine Cardiovascular Disease | DX: R00.0 Tachycardia, unspecified (principal) | CPT/HCPCS: 93010 ==

== ENCOUNTER → 2025-04-19 22:23 | Outpatient (BNV) | payer MEDICARE, MEDICAID, SELFPAY | PROVIDERS: Emergency Provider Emergency Medicine; PCP Internal Medicine; Visit Provider Radiology Diagnostic Radiology | DX: K85.80 Other acute pancreatitis without necrosis or infection (principal); K76.0 Fatty (change of) liver, not elsewhere classified; S09.90XA Unspecified injury of head, initial encounter; R42 Dizziness and giddiness; Z04.3 Encounter for examination and observation following other accident | CPT/HCPCS: 70450; 74177 ==

== ENCOUNTER → 2025-04-20 06:19 | Outpatient (BNV) | payer MEDICARE, MEDICAID, SELFPAY | PROVIDERS: Admitting Provider Registered Nurse Community Health; Emergency Provider Emergency Medicine; PCP Internal Medicine; Visit Provider Internal Medicine Pulmonary Disease | DX: E11.10 Type 2 diabetes mellitus with ketoacidosis without coma (principal); D69.6 Thrombocytopenia, unspecified; D86.9 Sarcoidosis, unspecified | CPT/HCPCS: 99232 ==

== ENCOUNTER → 2025-04-20 06:19 | Outpatient (BNV) | payer MEDICARE, MEDICAID, SELFPAY | PROVIDERS: Admitting Provider Registered Nurse Community Health; Emergency Provider Emergency Medicine; PCP Internal Medicine; Visit Provider Internal Medicine | DX: D61.818 Other pancytopenia (principal) | CPT/HCPCS: 99222 ==

== ENCOUNTER → 2025-04-20 06:19 | Outpatient (BNV) | payer MEDICARE, MEDICAID, SELFPAY | PROVIDERS: Admitting Provider Registered Nurse Community Health; Emergency Provider Emergency Medicine; PCP Internal Medicine; Visit Provider Internal Medicine | DX: E11.10 Type 2 diabetes mellitus with ketoacidosis without coma (principal) | CPT/HCPCS: 99232 ==

== ENCOUNTER → 2025-04-20 06:19 | Outpatient (BNV) | payer MEDICARE, MEDICAID, SELFPAY | PROVIDERS: Admitting Provider Registered Nurse Community Health; Emergency Provider Emergency Medicine; PCP Internal Medicine; Visit Provider Registered Nurse Community Health | DX: E11.10 Type 2 diabetes mellitus with ketoacidosis without coma (principal); E11.43 Type 2 diabetes mellitus with diabetic autonomic (poly)neuropathy; K31.84 Gastroparesis; K86.1 Other chronic pancreatitis | CPT/HCPCS: 99223 ==